=== PATIENT | female | born 1975 | race Caucasian/White ===

== ENCOUNTER 2018-01-12 11:33 | Inpatient (IN) | payer BC ==
[~2018-01-12] VITALS: Ht 154.9 cm; Wt 63.0 kg
[2018-01-12 06:00] VITALS: BP 131/90
[~2018-01-12 11:33] MED LIST: ALPR0.254 PO; ARIP10TA9 PO; IBUP-1007 PO; LISI10TA2 PO; METF10007 PO; TRAM-48 PO; ZOLP10TA PO; [UNRECOGNIZED DRUG - OTHER] SQ
[2018-01-12] MEDS ORDERED: IV NORMAL SALINE 1000ML BAG 1,000 ML IV ONE ×2 (12:15→17:00)
[2018-01-12] MEDS ORDERED: fentaNYL PF VIAL 100 MCG/2 ML VIAL IV ONE ×3 (12:15→16:45)
[2018-01-12] MEDS ORDERED: ONDANSETRON PF 4 MG/2 ML VIAL. IV ONE (12:15)
[2018-01-12 12:17] LABS: BASO % 1 % (0-3); EOS # 0.1 x10^3/uL (0.0-0.7); EOS % 1 % (0-3); HEMATOCRIT 37.9 % (36.0-47.0); HEMOGLOBIN 12.5 g/dL (12.0-15.5); LYMPH # 1.9 x10^3/uL (1.0-4.8); LYMPH % 23 % (24-48); MEAN CORPUSCULAR HEMOGLOBIN 25 pg (25-35); MEAN CORPUSCULAR HGB CONC 33 g/dL (31-37); MEAN CORPUSCULAR VOLUME 76 fL (79-100); MONO # 0.7 x10^3/uL (0.0-1.1); MONO % 8 % (0-9); NEUT # 5.6 x10^3uL (1.8-7.7); NEUT % 67 % (31-73); PLATELET COUNT 233 x10^3/uL (140-400); RED BLOOD COUNT 4.99 x10^6/uL (3.50-5.40); RED CELL DISTRIBUTION WIDTH 15.6 % (11.5-14.5); WHITE BLOOD COUNT 8.3 x10^3/uL (4.0-11.0)
[2018-01-12 12:18] LABS: BILIRUBIN,URINE NEGATIVE (NEG); CLARITY,URINE CLEAR; COLOR,URINE YELLOW; NITRITE,URINE NEGATIVE (NEG); PROTEIN,URINE NEGATIVE (NEG-TRACE); UROBILINOGEN,URINE 0.2 mg/dL (0.2 mg/dL)
[2018-01-12 12:38] LABS: BACTERIA,URINE MODERATE /HPF (0-FEW); RBC,URINE 0 /HPF (0-2); SQUAMOUS EPITHELIAL CELL,UR MOD /LPF
[2018-01-12 12:39] LABS: U PREG PATIENT NEGATIVE (NEG)
[2018-01-12 12:55] LABS: CALCIUM 8.9 mg/dL (8.5-10.1); CREATININE 0.7 mg/dL (0.6-1.0); GFR 91.3; POTASSIUM 4.8 mmol/L (3.5-5.1)
[2018-01-12 13:02] LABS: ALBUMIN 3.4 g/dL (3.4-5.0); ALBUMIN/GLOBULIN RATIO 0.8 (1.0-1.7); TOTAL BILIRUBIN 0.2 mg/dL (0.2-1.0); TOTAL PROTEIN 7.6 g/dL (6.4-8.2)
[2018-01-12] MEDS ORDERED: IOHEXOL 300 MG/ML 100ML VIAL. IV ONE (13:30)
[2018-01-12] MEDS ORDERED: CONTRAST GIVEN. MC PRN (13:45)
--- NOTE | 2018-01-12 14:18 | RAD ---
Examination: CT of the abdomen pelvis with IV contrast HISTORY: History of right-sided abdominal pain COMPARISON: None available TECHNIQUE: Axial CT images of the abdomen pelvis were performed with IV contrast. Coronal and sagittal reformats are performed. Exposure: One or more of the following individualized dose reduction techniques were utilized for this examination: 1. Automated exposure control 2. Adjustment of the mA and/or kV according to patient size 3. Use of iterative reconstruction technique FINDINGS: Small calcified granuloma identified in the right lung base. The lung bases are clear. No evidence of free air identified in the abdomen. There is ill-defined hypodensity measuring 8.0 x 4.7 cm could be hepatic abscess or infarct with surrounding hypodensity likely edema identified in the right lobe of the liver extending from the gallbladder fossa with punctate focus of air in the gallbladder fossa. Multiple calcified granulomas identified in the spleen. Cholecystectomy changes. The stomach is mildly distended. The small bowel is nondilated. Feces and gas noted in the colon throughout. Cystic structure identified in the right adnexa measuring 3.2 cm could be right ovarian cyst or cystic lesion. There is some whorled appearance of the mesentery at the mesenteric root with multiple lymph nodes with the largest measuring 1.4 cm. The visualized pancreas grossly appears unremarkable. The bilateral kidneys enhance symmetrically. No evidence of lytic bony destructive lesion. Impression: 1. 8 cm ill-defined hypodensity identified in the right lobe of the liver surrounding edema could be developing abscess or infarct. Correlate with lab values. 2. There is some whirling of the mesentery at the mesenteric root with few prominent mesenteric lymph nodes. Differential includes mesenteric adenitis, lymphoma or internal hernia without small bowel obstruction. 3. 3.2 cm cystic structure identified in the right adnexa probably a right ovarian cyst or cystic lesion. Electronically signed by: Bernardo Merino MD (01/12/2018 2:14 PM) [facility]
--- NOTE | 2018-01-12 16:35 | PHYS DOC ---
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 Patient states the pain has been coming and going. She states the pain got worse hence the reason she came to the ED. She is also complaining of nausea and vomiting intermittently since her gallbladder was removed. Patient denies any fever. PCP Dr. Nuno Review of Systems Review of Systems Constitutional: Denies fever or chills [] Eyes: Denies change in visual acuity, redness, or eye pain [] HENT: Denies nasal congestion or sore throat [] Respiratory: Denies cough or shortness of breath [] Cardiovascular: No additional information not addressed in HPI [] GI: Reports abdominal pain, nausea and vomiting, denies diarrhea [] : Denies dysuria or hematuria [] Musculoskeletal: Denies back pain or joint pain [] Integument: Denies rash or skin lesions [] Neurologic: Denies headache, focal weakness or sensory changes [] All other systems were reviewed and found to be within normal limits, except as documented in this note. Current Medications Current Medications Current Medications Medications (Trade) Dose Ordered Sig/Teto Start Time Stop Time Status Last Admin Dose Admin Fentanyl Citrate (Fentanyl 2ml Vial) 50 mcg 1X ONCE 01/12/18 16:45 01/12/18 16:46 Info (CONTRAST GIVEN -- Rx MONITORING) 1 each PRN DAILY PRN 01/12/18 13:45 01/14/18 13:44 Iohexol (Omnipaque 300 Mg/ml) 75 ml 1X ONCE 01/12/18 13:30 01/12/18 13:31 DC 01/12/18 13:30 75 ML Ondansetron HCl (Zofran) 4 mg 1X ONCE 01/12/18 12:15 01/12/18 12:16 DC 01/12/18 12:27 4 MG Sodium Chloride 1,000 ml @ 1,000 mls/hr 1X ONCE 01/12/18 12:15 01/12/18 13:14 DC 01/12/18 12:27 1,000 MLS/HR Allergies Allergies Allergies Coded Allergies Type Severity Reaction Last Updated Verified Penicillins Allergy Intermediate RASHY 10/25/17 Yes acetaminophen Adverse Reaction Intermediate severe stomach ache 10/25/17 Yes morphine Adverse Reaction Intermediate Itching 10/25/17 Yes Physical Exam Physical Exam Constitutional: Well developed, well nourished, no acute distress, non-toxic appearance. [] HENT: Normocephalic, atraumatic, bilateral external ears normal, oropharynx moist, no oral exudates, nose normal. [] Eyes: PERRLA, EOMI, conjunctiva normal, no discharge. [] Neck: Normal range of motion, no tenderness, supple, no stridor. [] Cardiovascular:Heart rate regular rhythm, no murmur [] Lungs & Thorax: Bilateral breath sounds clear to auscultation [] Abdomen: Old healed surgical incision noted right upper quadrant. Bowel sounds normal, soft, slight diffuse tenderness throughout the abdomen, no masses, no pulsatile masses. [] Skin: Warm, dry, no erythema, no rash. [] Back: No tenderness, no CVA tenderness. [] Extremities: No tenderness, no cyanosis, no clubbing, ROM intact, no edema. [] Neurologic: Alert and oriented X 3, normal motor function, normal sensory function, no focal deficits noted. [] Psychologic: Affect normal, judgement normal, mood normal. [] Current Patient Data Vital Signs Vital Signs Date Time Temp Pulse Resp B/P (MAP) Pulse Ox O2 Delivery O2 Flow Rate FiO2 01/12/18 14:11 16 01/12/18 11:50 98.4 108 140/94 (109) 97 Room Air 98.4 Lab Values Laboratory Tests Test 01/12/18 11:40 01/12/18 12:05 Urine Collection Type Unknown Urine Color Yellow Urine Clarity Clear Urine pH 5.0 Urine Specific [place] >=1.030 Urine Protein Negative mg/dL (NEG-TRACE) Urine Glucose (UA) >=1000 mg/dL (NEG) Urine Ketones (Stick) Negative mg/dL (NEG) Urine Blood Trace (NEG) Urine Nitrite Negative (NEG) Urine Bilirubin Negative (NEG) Urine Urobilinogen Dipstick 0.2 mg/dL (0.2 mg/dL) Urine Leukocyte Esterase Negative (NEG) Urine RBC 0 /HPF (0-2) Urine WBC 1-4 /HPF (0-4) Urine Squamous Epithelial Cells Mod /LPF Urine Bacteria Moderate /HPF (0-FEW) Urine Mucus Mod /LPF Urine Test Negative (NEG) White Blood Count 8.3 x10^3/uL (4.0-11.0) Red Blood Count 4.99 x10^6/uL (3.50-5.40) Hemoglobin 12.5 g/dL (12.0-15.5) Hematocrit 37.9 % (36.0-47.0) Mean Corpuscular Volume 76 fL (79-100) L Mean Corpuscular Hemoglobin 25 pg (25-35) Mean Corpuscular Hemoglobin Concent 33 g/dL (31-37) Red Cell Distribution Width 15.6 % (11.5-14.5) H Platelet Count 233 x10^3/uL (140-400) Neutrophils (%) (Auto) 67 % (31-73) Lymphocytes (%) (Auto) 23 % (24-48) L Monocytes (%) (Auto) 8 % (0-9) Eosinophils (%) (Auto) 1 % (0-3) Basophils (%) (Auto) 1 % (0-3) Neutrophils # (Auto) 5.6 x10^3uL (1.8-7.7) Lymphocytes # (Auto) 1.9 x10^3/uL (1.0-4.8) Monocytes # (Auto) 0.7 x10^3/uL (0.0-1.1) Eosinophils # (Auto) 0.1 x10^3/uL (0.0-0.7) Basophils # (Auto) 0.0 x10^3/uL (0.0-0.2) Sodium Level 133 mmol/L (136-145) L Potassium Level 4.8 mmol/L (3.5-5.1) Chloride Level 97 mmol/L (98-107) L Carbon Dioxide Level 24 mmol/L (21-32) Anion Gap 12 (6-14) Blood Urea Nitrogen 14 mg/dL (7-20) Creatinine 0.7 mg/dL (0.6-1.0) Estimated GFR (Cockcroft-Gault) 91.3 BUN/Creatinine Ratio 20 (6-20) Glucose Level 339 mg/dL (70-99) H Calcium Level 8.9 mg/dL (8.5-10.1) Total Bilirubin 0.2 mg/dL (0.2-1.0) Aspartate Amino Transferase (AST) 21 U/L (15-37) Alanine Aminotransferase (ALT) 25 U/L (14-59) Alkaline Phosphatase 122 U/L (46-116) H Total Protein 7.6 g/dL (6.4-8.2) Albumin 3.4 g/dL (3.4-5.0) Albumin/Globulin Ratio 0.8 (1.0-1.7) L Lipase 332 U/L (73-393) Laboratory Tests 01/12/18 12:05 Laboratory Tests 01/12/18 12:05 EKG EKG [] Radiology/Procedures Radiology/Procedures []PROCEDURE: CT ABD PELV W/ IV CONTRST ONLY Examination: CT of the abdomen pelvis with IV contrast HISTORY: History of right-sided abdominal pain COMPARISON: None available TECHNIQUE: Axial CT images of the abdomen pelvis were performed with IV contrast. Coronal and sagittal reformats are performed. Exposure: One or more of the following individualized dose reduction techniques were utilized for this examination: 1. Automated exposure control 2. Adjustment of the mA and/or kV according to patient size 3. Use of iterative reconstruction technique FINDINGS: Small calcified granuloma identified in the right lung base. The lung bases are clear. No evidence of free air identified in the abdomen. There is ill-defined hypodensity measuring 8.0 x 4.7 cm could be hepatic abscess or infarct with surrounding hypodensity likely edema identified in the right lobe of the liver extending from the gallbladder fossa with punctate focus of air in the gallbladder fossa. Multiple calcified granulomas identified in the spleen. Cholecystectomy changes. The stomach is mildly distended. The small bowel is nondilated. Feces and gas noted in the colon throughout. Cystic structure identified in the right adnexa measuring 3.2 cm could be right ovarian cyst or cystic lesion. There is some whorled appearance of the mesentery at the mesenteric root with multiple lymph nodes with the largest measuring 1.4 cm. The visualized pancreas grossly appears unremarkable. The bilateral kidneys enhance symmetrically. No evidence of lytic bony destructive lesion. Impression: 1. 8 cm ill-defined hypodensity identified in the right lobe of the liver surrounding edema could be developing abscess or infarct. Correlate with lab values. 2. There is some whirling of the mesentery at the mesenteric root with few prominent mesenteric lymph nodes. Differential includes mesenteric adenitis, lymphoma or internal hernia without small bowel obstruction. 3. 3.2 cm cystic structure identified in the right adnexa probably a right ovarian cyst or cystic lesion. Electronically signed by: Bernardo Merino MD (01/12/2018 2:14 PM) [facility] DICTATED and SIGNED BY: BERNARDO MERINO MD DATE: 01/12/18 1404 Course & Med Decision Making Course & Med Decision Making Pertinent Labs and Imaging studies reviewed. (See chart for details) This is a 42-year-old female patient who presents to the ED today complaining of abdominal pain that has been going on since Sep 13 2017 after having an open cholecystectomy which resulted into multiple complications including liver in fact. CBC with a normal WBC, CMP with sodium of 133, glucose 339, patient has history of diabetes type 1, anion gap is normal. CT of the abdomen and pelvic was noted for 8 cm ill-defined hypodensity identified in the right lobe of the liver surrounding edema could be developing abscess or infarct. Correlate with lab values. 16:30 Dr. Morales in the ED evaluating patient. Dr. Morales spoke to Dr. Nuno patient's PCP and they agreed to admit patient. Dragon Disclaimer Dragon Disclaimer This electronic medical record was generated, in whole or in part, using a voice recognition dictation system. Departure Departure Impression: Primary Impression: Abdominal pain Additional Impression: Hyperglycemia Disposition: ADMITTED INPATIENT Condition: STABLE Referrals: CHASE NUNO MD (PCP) Problem Qualifiers Primary Impression: Abdominal pain Abdominal location: generalized Qualified Codes: R10.84 - Generalized abdominal pain ONEIDAALEX PADILLA [employer] Jan 12, 2018 16:35
[2018-01-12] MEDS ORDERED: fentaNYL PF VIAL 100 MCG/2 ML VIAL IV PRN (17:00)
[2018-01-12] MEDS ORDERED: DEXTROSE 50% 25 GM / 50ML DISP.SYRIN. IV PRN (17:00)
[2018-01-12] MEDS ORDERED: HYDROcodone/APAP 5/325MG 1 TAB TABLET PO PRN (18:45)
[2018-01-12 19:00] VITALS: BP 119/76
[2018-01-12] MEDS ORDERED: diphenhydrAMINE HCL 25 MG CAPSULE PO PRN (19:00)
[2018-01-12] MEDS: HYDROcodone/APAP 5/325MG 1 TAB TABLET PO PRN ×2 (19:19→20:56)
[2018-01-12] MEDS: INSULIN LISPRO 300 UNITS/3 ML INSULN.PEN. SQ SCH (19:21)
[2018-01-12] MEDS ORDERED: diphenhydrAMINE 50 MG/ML VIAL IVP PRN (19:45)
[2018-01-12] MEDS: diphenhydrAMINE HCL 25 MG CAPSULE PO PRN (20:56)
[2018-01-12] MEDS: ONDANSETRON PF 4 MG/2 ML VIAL. IV PRN (21:14)
[2018-01-12 23:00] VITALS: BP 125/85
[2018-01-13 03:00] VITALS: BP 97/67
[2018-01-13] MEDS: ONDANSETRON PF 4 MG/2 ML VIAL. IV PRN (05:13)
[2018-01-13 05:28] LABS: BASO % 1 % (0-3); EOS # 0.1 x10^3/uL (0.0-0.7); EOS % 2 % (0-3); HEMATOCRIT 34.1 % (36.0-47.0); HEMOGLOBIN 11.3 g/dL (12.0-15.5); LYMPH # 2.3 x10^3/uL (1.0-4.8); LYMPH % 41 % (24-48); MEAN CORPUSCULAR HEMOGLOBIN 25 pg (25-35); MEAN CORPUSCULAR HGB CONC 33 g/dL (31-37); MEAN CORPUSCULAR VOLUME 76 fL (79-100); MONO # 0.6 x10^3/uL (0.0-1.1); MONO % 10 % (0-9); NEUT # 2.7 x10^3uL (1.8-7.7); NEUT % 47 % (31-73); PLATELET COUNT 178 x10^3/uL (140-400); RED BLOOD COUNT 4.48 x10^6/uL (3.50-5.40); RED CELL DISTRIBUTION WIDTH 15.7 % (11.5-14.5); WHITE BLOOD COUNT 5.7 x10^3/uL (4.0-11.0)
[2018-01-13 05:55] LABS: ALBUMIN 2.8 g/dL (3.4-5.0); ALBUMIN/GLOBULIN RATIO 0.8 (1.0-1.7); CREATININE 0.4 mg/dL (0.6-1.0); GFR 174.2; POTASSIUM 4.2 mmol/L (3.5-5.1); TOTAL BILIRUBIN 0.2 mg/dL (0.2-1.0); TOTAL PROTEIN 6.4 g/dL (6.4-8.2)
[2018-01-13 07:00] VITALS: BP 102/72
[2018-01-13] MEDS: INSULIN LISPRO 300 UNITS/3 ML INSULN.PEN. SQ SCH ×3 (08:00→17:00)
[2018-01-13] MEDS: PANTOPRAZOLE IV PUSH 40 MG VIAL. IVP SCH (08:33)
[2018-01-13] MEDS: HYDROcodone/APAP 5/325MG 1 TAB TABLET PO PRN ×3 (08:35→19:30)
--- NOTE | 2018-01-13 09:53 | PDOC ---
GENERAL General: see dictated H&P. VITAL SIGNS Vital Signs: Vital Signs Date Time Temp Pulse Resp B/P (MAP) Pulse Ox O2 Delivery O2 Flow Rate FiO2 01/13/18 08:35 94 Room Air 01/13/18 07:00 97.8 95 16 102/72 (82) 97.8 I & O I & O Intake and Output 01/13/18 07:00 Intake Total 100 ml Balance 100 ml Intake Oral 100 ml ALLERGIES Allergies: Allergies Coded Allergies Type Severity Reaction Last Updated Verified Penicillins Allergy Intermediate RASHY 10/25/17 Yes acetaminophen Adverse Reaction Intermediate severe stomach ache 10/25/17 Yes morphine Adverse Reaction Intermediate Itching 10/25/17 Yes MEDS Medications: Current Medications Medications (Trade) Dose Ordered Sig/Teto Start Time Stop Time Status Last Admin Dose Admin Acetaminophen/ Hydrocodone Bitart (Lortab 5/325) 2 tab PRN Q4HRS PRN 01/12/18 18:45 Dextrose (Dextrose 50%-Water Syringe) 12.5 gm PRN Q15MIN PRN 01/12/18 17:00 Diphenhydramine HCl (Benadryl) 25 mg PRN Q6HRS PRN 01/12/18 19:45 Fentanyl Citrate (Fentanyl 2ml Vial) 50 mcg PRN Q2HR PRN 01/12/18 17:00 01/13/18 16:59 01/12/18 18:24 50 MCG Info (CONTRAST GIVEN -- Rx MONITORING) 1 each PRN DAILY PRN 01/12/18 13:45 01/14/18 13:44 Insulin Human Lispro (HumaLOG) 0-5 UNITS TIDWMEALS 01/12/18 17:00 01/12/18 19:21 2 UNITS Iohexol (Omnipaque 300 Mg/ml) 75 ml 1X ONCE 01/12/18 13:30 01/12/18 13:31 DC 01/12/18 13:30 75 ML Ondansetron HCl (Zofran) 4 mg PRN Q8HRS PRN 01/12/18 17:00 01/13/18 16:59 01/13/18 05:13 4 MG Pantoprazole Sodium (PROTONIX VIAL for IV PUSH) 40 mg DAILYAC 01/13/18 07:30 01/13/18 08:33 40 MG Sodium Chloride 1,000 ml @ 75 mls/hr 1X ONCE 01/12/18 17:00 01/13/18 06:19 DC 01/12/18 18:24 75 MLS/HR LAB Lab: Laboratory Tests Test 01/12/18 11:40 01/12/18 12:05 01/12/18 16:35 01/12/18 18:17 Urine Collection Type Unknown Urine Color Yellow Urine Clarity Clear Urine pH 5.0 Urine Specific [place] >=1.030 Urine Protein Negative mg/dL (NEG-TRACE) Urine Glucose (UA) >=1000 mg/dL (NEG) Urine Ketones (Stick) Negative mg/dL (NEG) Urine Blood Trace (NEG) Urine Nitrite Negative (NEG) Urine Bilirubin Negative (NEG) Urine Urobilinogen Dipstick 0.2 mg/dL (0.2 mg/dL) Urine Leukocyte Esterase Negative (NEG) Urine RBC 0 /HPF (0-2) Urine WBC 1-4 /HPF (0-4) Urine Squamous Epithelial Cells Mod /LPF Urine Bacteria Moderate /HPF (0-FEW) Urine Mucus Mod /LPF Urine Test Negative (NEG) White Blood Count 8.3 x10^3/uL (4.0-11.0) Red Blood Count 4.99 x10^6/uL (3.50-5.40) Hemoglobin 12.5 g/dL (12.0-15.5) Hematocrit 37.9 % (36.0-47.0) Mean Corpuscular Volume 76 fL (79-100) Mean Corpuscular Hemoglobin 25 pg (25-35) Mean Corpuscular Hemoglobin Concent 33 g/dL (31-37) Red Cell Distribution Width 15.6 % (11.5-14.5) Platelet Count 233 x10^3/uL (140-400) Neutrophils (%) (Auto) 67 % (31-73) Lymphocytes (%) (Auto) 23 % (24-48) Monocytes (%) (Auto) 8 % (0-9) Eosinophils (%) (Auto) 1 % (0-3) Basophils (%) (Auto) 1 % (0-3) Neutrophils # (Auto) 5.6 x10^3uL (1.8-7.7) Lymphocytes # (Auto) 1.9 x10^3/uL (1.0-4.8) Monocytes # (Auto) 0.7 x10^3/uL (0.0-1.1) Eosinophils # (Auto) 0.1 x10^3/uL (0.0-0.7) Basophils # (Auto) 0.0 x10^3/uL (0.0-0.2) Sodium Level 133 mmol/L (136-145) Potassium Level 4.8 mmol/L (3.5-5.1) Chloride Level 97 mmol/L (98-107) Carbon Dioxide Level 24 mmol/L (21-32) Anion Gap 12 (6-14) Blood Urea Nitrogen 14 mg/dL (7-20) Creatinine 0.7 mg/dL (0.6-1.0) Estimated GFR (Cockcroft-Gault) 91.3 BUN/Creatinine Ratio 20 (6-20) Glucose Level 339 mg/dL (70-99) Calcium Level 8.9 mg/dL (8.5-10.1) Total Bilirubin 0.2 mg/dL (0.2-1.0) Aspartate Amino Transf (AST/SGOT) 21 U/L (15-37) Alanine Aminotransferase (ALT/SGPT) 25 U/L (14-59) Alkaline Phosphatase 122 U/L (46-116) Total Protein 7.6 g/dL (6.4-8.2) Albumin 3.4 g/dL (3.4-5.0) Albumin/Globulin Ratio 0.8 (1.0-1.7) Lipase 332 U/L (73-393) Lactic Acid Level 1.8 mmol/L (0.4-2.0) Glucose (Fingerstick) 195 mg/dL (70-99) Test 01/12/18 20:38 01/13/18 04:40 01/13/18 08:07 Glucose (Fingerstick) 232 mg/dL (70-99) 146 mg/dL (70-99) White Blood Count 5.7 x10^3/uL (4.0-11.0) Red Blood Count 4.48 x10^6/uL (3.50-5.40) Hemoglobin 11.3 g/dL (12.0-15.5) Hematocrit 34.1 % (36.0-47.0) Mean Corpuscular Volume 76 fL (79-100) Mean Corpuscular Hemoglobin 25 pg (25-35) Mean Corpuscular Hemoglobin Concent 33 g/dL (31-37) Red Cell Distribution Width 15.7 % (11.5-14.5) Platelet Count 178 x10^3/uL (140-400) Neutrophils (%) (Auto) 47 % (31-73) Lymphocytes (%) (Auto) 41 % (24-48) Monocytes (%) (Auto) 10 % (0-9) Eosinophils (%) (Auto) 2 % (0-3) Basophils (%) (Auto) 1 % (0-3) Neutrophils # (Auto) 2.7 x10^3uL (1.8-7.7) Lymphocytes # (Auto) 2.3 x10^3/uL (1.0-4.8) Monocytes # (Auto) 0.6 x10^3/uL (0.0-1.1) Eosinophils # (Auto) 0.1 x10^3/uL (0.0-0.7) Basophils # (Auto) 0.0 x10^3/uL (0.0-0.2) Sodium Level 138 mmol/L (136-145) Potassium Level 4.2 mmol/L (3.5-5.1) Chloride Level 103 mmol/L (98-107) Carbon Dioxide Level 27 mmol/L (21-32) Anion Gap 8 (6-14) Blood Urea Nitrogen 9 mg/dL (7-20) Creatinine 0.4 mg/dL (0.6-1.0) Estimated GFR (Cockcroft-Gault) 174.2 BUN/Creatinine Ratio 23 (6-20) Glucose Level 131 mg/dL (70-99) Calcium Level 9.0 mg/dL (8.5-10.1) Total Bilirubin 0.2 mg/dL (0.2-1.0) Aspartate Amino Transf (AST/SGOT) 11 U/L (15-37) Alanine Aminotransferase (ALT/SGPT) 18 U/L (14-59) Alkaline Phosphatase 83 U/L (46-116) Total Protein 6.4 g/dL (6.4-8.2) Albumin 2.8 g/dL (3.4-5.0) Albumin/Globulin Ratio 0.8 (1.0-1.7) CHASE LEVINE MD Jan 13, 2018 09:53
[2018-01-13 11:00] VITALS: BP 117/82
--- NOTE | 2018-01-13 11:38 | PDOC2 ---
SHIELA SULLIVAN LATHE SETUP OPERATOR 01/13/18 1138: CONSULT Date of Consult Date of Consult DATE: 01/13/18 TIME: 11:32 Reason for Consult Reason for Consult: abdominal pain Referring Physician Referring Physician: ER Identification/Chief Complaint Chief Complaint abdominal pain Source Source: Chart review, Patient History of Present Illness Reason for Visit: Hx of Laparoscopic converted to open cholecystectomy with cholangiogram, hepaticojejunostomy in September. hepatic infarct postoperatively. Returns now with increasing RUQ and nausea, emesis. Currently improved, no further n/v Denies diarrhea or constipation Past Medical History Cardiovascular: HTN, Hyperlipidemia Pulmonary: Asthma Psych: Anxiety, Depression Endocrine: Diabetes Past Surgical History Past Surgical History: Cholecystectomy Family History Family History: Other Social History ALCOHOL: none Drugs: Other Lives: with Family Current Problem List Problem List Problems Medical Problems: (1) Abdominal pain Status: Acute (2) Hyperglycemia Status: Acute Current Medications Current Medications Current Medications Sodium Chloride 1,000 ml @ 1,000 mls/hr 1X ONCE IV Last administered on at 12:27; Start 01/12/18 at 12:15; Stop 01/12/18 at 13:14; Status DC Ondansetron HCl (Zofran) 4 mg 1X ONCE IV Last administered on 01/12/18at 12:27 ; Start 01/12/18 at 12:15; Stop 01/12/18 at 12:16; Status DC Fentanyl Citrate (Fentanyl 2ml Vial) 50 mcg 1X ONCE IV Last administered on at 12:27; Start 01/12/18 at 12:15; Stop 01/12/18 at 12:16; Status DC Iohexol (Omnipaque 300 Mg/ml) 75 ml 1X ONCE IV Last administered on 01/12/18at 13:30; Start 01/12/18 at 13:30; Stop 01/12/18 at 13:31; Status DC Info (CONTRAST GIVEN -- Rx MONITORING) 1 each PRN DAILY PRN MC SEE COMMENTS; Start 01/12/18 at 13:45; Stop 01/14/18 at 13:44 Fentanyl Citrate (Fentanyl 2ml Vial) 50 mcg 1X ONCE IV Last administered on at 14:11; Start 01/12/18 at 14:00; Stop 01/12/18 at 14:01; Status DC Fentanyl Citrate (Fentanyl 2ml Vial) 50 mcg 1X ONCE IV Last administered on 16:54; Start 01/12/18 at 16:45; Stop 01/12/18 at 16:46; Status DC Ondansetron HCl (Zofran) 4 mg PRN Q8HRS PRN IV NAUSEA/VOMITING Last administered on 01/13/18at 05:13; Start 01/12/18 at 17:00; Stop 01/13/18 at 16:59 Fentanyl Citrate (Fentanyl 2ml Vial) 50 mcg PRN Q2HR PRN IV PAIN Last administered on 01/12/18at 18:24; Start 01/12/18 at 17:00; Stop 01/13/18 at 16:59 Insulin Human Lispro (HumaLOG) 0-5 UNITS TIDWMEALS SQ Last administered on 01/12 19:21; Start 01/12/18 at 17:00 Dextrose (Dextrose 50%-Water Syringe) 12.5 gm PRN Q15MIN PRN IV SEE COMMENTS; Start 01/12/18 at 17:00 Sodium Chloride 1,000 ml @ 75 mls/hr 1X ONCE IV Last administered on at 18:24; Start 01/12/18 at 17:00; Stop 01/13/18 at 06:19; Status DC Pantoprazole Sodium (PROTONIX VIAL for IV PUSH) 40 mg DAILYAC IVP Last administered on 01/13/18at 08:33; Start 01/13/18 at 07:30 Acetaminophen/ Hydrocodone Bitart (Lortab 5/325) 1 tab PRN Q4HRS PRN PO MODERATE PAIN Last administered on 01/13/18at 08:35; Start 01/12/18 at 18:45 Acetaminophen/ Hydrocodone Bitart (Lortab 5/325) 2 tab PRN Q4HRS PRN PO SEVERE PAIN; Start 01/12/18 at 18:45 Diphenhydramine HCl (Benadryl) 12 mg PRN Q6HRS PRN PO ITCHING; Start 01/12/18 at 19:00; Stop 01/12/18 at 19:44; Status DC Diphenhydramine HCl (Benadryl) 25 mg PRN Q6HRS PRN PO ITCHING Last administered on 01/12/18at 20:56; Start 01/12/18 at 19:45 Diphenhydramine HCl (Benadryl) 25 mg PRN Q6HRS PRN IVP ITCHING; Start 01/12/18 at 19:45 Active Scripts Active Ultram (Tramadol Hcl) 50 Mg Tablet 50 Mg PO Q6H PRN Ibuprofen 600 Mg Tablet 600 Mg PO PRN Q6HRS PRN Reported Ambien (Zolpidem Tartrate) 10 Mg Tablet 10 Mg PO HS PRN [inslin] 14 Units SQ DAILY Metformin Hcl 1,000 Mg Tablet 1,000 Mg PO DAILYWBKFT Lisinopril 10 Mg Tablet 1 Tab PO DAILY Allergies Allergies: Coded Allergies: Penicillins (Verified Allergy, Intermediate, RASHY, 10/25/17) acetaminophen (Verified Adverse Reaction, Intermediate, severe stomach ache, 10/25/17) morphine (Verified Adverse Reaction, Intermediate, Itching, 10/25/17) ROS General: No: Chills, Other (fevers) PSYCHOLOGICAL ROS: No: Anxiety, Depression Eyes: No Blurry vision, No Double vision HEENT: No: Heacaches, Sore Throat Hematological and Lymphatic: No: Bleeding Problems, Blood Clots Respiratory: No: Cough, Shortness of breath Cardiovascular: No Chest Pain, No Palpitations Gastrointestinal: Yes Other (see hpi) Genitourinary: No Dysuria, No Hematuria Musculoskeletal: No Joint Pain, No Muscle Pain Neurological: No Confusion, No Impaired Coord/balance Skin: No Pruritus, No Rash Physical Exam General: Alert, Oriented X3, Cooperative, No acute distress HEENT: PERRLA, Mucous membr. moist/pink Lungs: Clear to auscultation, Normal air movement Heart: Regular rate, Normal S1, Normal S2, No murmurs Abdomen: Soft, No tenderness, No hepatosplenomegaly Extremities: No clubbing, No cyanosis Skin: No rashes, No breakdown Neuro: Normal gait, Normal speech Psych/Mental Status: Mental status NL, Mood NL MUSCULOSKELETAL: No deformity, No swelling Vitals VITALS Vital Signs Date Time Temp Pulse Resp B/P (MAP) Pulse Ox O2 Delivery O2 Flow Rate FiO2 01/13/18 09:45 94 Room Air 01/13/18 07:00 97.8 95 16 102/72 (82) 97.8 Labs Labs Laboratory Tests Test 01/12/18 11:40 01/12/18 12:05 01/12/18 16:35 01/12/18 18:17 Urine Collection Type Unknown Urine Color Yellow Urine Clarity Clear Urine pH 5.0 Urine Specific [place] >=1.030 Urine Protein Negative mg/dL (NEG-TRACE) Urine Glucose (UA) >=1000 mg/dL (NEG) Urine Ketones (Stick) Negative mg/dL (NEG) Urine Blood Trace (NEG) Urine Nitrite Negative (NEG) Urine Bilirubin Negative (NEG) Urine Urobilinogen Dipstick 0.2 mg/dL (0.2 mg/dL) Urine Leukocyte Esterase Negative (NEG) Urine RBC 0 /HPF (0-2) Urine WBC 1-4 /HPF (0-4) Urine Squamous Epithelial Cells Mod /LPF Urine Bacteria Moderate /HPF (0-FEW) Urine Mucus Mod /LPF Urine Test Negative (NEG) White Blood Count 8.3 x10^3/uL (4.0-11.0) Red Blood Count 4.99 x10^6/uL (3.50-5.40) Hemoglobin 12.5 g/dL (12.0-15.5) Hematocrit 37.9 % (36.0-47.0) Mean Corpuscular Volume 76 fL (79-100) Mean Corpuscular Hemoglobin 25 pg (25-35) Mean Corpuscular Hemoglobin Concent 33 g/dL (31-37) Red Cell Distribution Width 15.6 % (11.5-14.5) Platelet Count 233 x10^3/uL (140-400) Neutrophils (%) (Auto) 67 % (31-73) Lymphocytes (%) (Auto) 23 % (24-48) Monocytes (%) (Auto) 8 % (0-9) Eosinophils (%) (Auto) 1 % (0-3) Basophils (%) (Auto) 1 % (0-3) Neutrophils # (Auto) 5.6 x10^3uL (1.8-7.7) Lymphocytes # (Auto) 1.9 x10^3/uL (1.0-4.8) Monocytes # (Auto) 0.7 x10^3/uL (0.0-1.1) Eosinophils # (Auto) 0.1 x10^3/uL (0.0-0.7) Basophils # (Auto) 0.0 x10^3/uL (0.0-0.2) Sodium Level 133 mmol/L (136-145) Potassium Level 4.8 mmol/L (3.5-5.1) Chloride Level 97 mmol/L (98-107) Carbon Dioxide Level 24 mmol/L (21-32) Anion Gap 12 (6-14) Blood Urea Nitrogen 14 mg/dL (7-20) Creatinine 0.7 mg/dL (0.6-1.0) Estimated GFR (Cockcroft-Gault) 91.3 BUN/Creatinine Ratio 20 (6-20) Glucose Level 339 mg/dL (70-99) Calcium Level 8.9 mg/dL (8.5-10.1) Total Bilirubin 0.2 mg/dL (0.2-1.0) Aspartate Amino Transf (AST/SGOT) 21 U/L (15-37) Alanine Aminotransferase (ALT/SGPT) 25 U/L (14-59) Alkaline Phosphatase 122 U/L (46-116) Total Protein 7.6 g/dL (6.4-8.2) Albumin 3.4 g/dL (3.4-5.0) Albumin/Globulin Ratio 0.8 (1.0-1.7) Lipase 332 U/L (73-393) Lactic Acid Level 1.8 mmol/L (0.4-2.0) Glucose (Fingerstick) 195 mg/dL (70-99) Test 01/12/18 20:38 01/13/18 04:40 01/13/18 08:07 Glucose (Fingerstick) 232 mg/dL (70-99) 146 mg/dL (70-99) White Blood Count 5.7 x10^3/uL (4.0-11.0) Red Blood Count 4.48 x10^6/uL (3.50-5.40) Hemoglobin 11.3 g/dL (12.0-15.5) Hematocrit 34.1 % (36.0-47.0) Mean Corpuscular Volume 76 fL (79-100) Mean Corpuscular Hemoglobin 25 pg (25-35) Mean Corpuscular Hemoglobin Concent 33 g/dL (31-37) Red Cell Distribution Width 15.7 % (11.5-14.5) Platelet Count 178 x10^3/uL (140-400) Neutrophils (%) (Auto) 47 % (31-73) Lymphocytes (%) (Auto) 41 % (24-48) Monocytes (%) (Auto) 10 % (0-9) Eosinophils (%) (Auto) 2 % (0-3) Basophils (%) (Auto) 1 % (0-3) Neutrophils # (Auto) 2.7 x10^3uL (1.8-7.7) Lymphocytes # (Auto) 2.3 x10^3/uL (1.0-4.8) Monocytes # (Auto) 0.6 x10^3/uL (0.0-1.1) Eosinophils # (Auto) 0.1 x10^3/uL (0.0-0.7) Basophils # (Auto) 0.0 x10^3/uL (0.0-0.2) Sodium Level 138 mmol/L (136-145) Potassium Level 4.2 mmol/L (3.5-5.1) Chloride Level 103 mmol/L (98-107) Carbon Dioxide Level 27 mmol/L (21-32) Anion Gap 8 (6-14) Blood Urea Nitrogen 9 mg/dL (7-20) Creatinine 0.4 mg/dL (0.6-1.0) Estimated GFR (Cockcroft-Gault) 174.2 BUN/Creatinine Ratio 23 (6-20) Glucose Level 131 mg/dL (70-99) Calcium Level 9.0 mg/dL (8.5-10.1) Total Bilirubin 0.2 mg/dL (0.2-1.0) Aspartate Amino Transf (AST/SGOT) 11 U/L (15-37) Alanine Aminotransferase (ALT/SGPT) 18 U/L (14-59) Alkaline Phosphatase 83 U/L (46-116) Total Protein 6.4 g/dL (6.4-8.2) Albumin 2.8 g/dL (3.4-5.0) Albumin/Globulin Ratio 0.8 (1.0-1.7) Laboratory Tests Test 01/12/18 11:40 01/12/18 12:05 01/12/18 16:35 01/12/18 18:17 Urine Collection Type Unknown Urine Color Yellow Urine Clarity Clear Urine pH 5.0 Urine Specific [place] >=1.030 Urine Protein Negative mg/dL (NEG-TRACE) Urine Glucose (UA) >=1000 mg/dL (NEG) Urine Ketones (Stick) Negative mg/dL (NEG) Urine Blood Trace (NEG) Urine Nitrite Negative (NEG) Urine Bilirubin Negative (NEG) Urine Urobilinogen Dipstick 0.2 mg/dL (0.2 mg/dL) Urine Leukocyte Esterase Negative (NEG) Urine RBC 0 /HPF (0-2) Urine WBC 1-4 /HPF (0-4) Urine Squamous Epithelial Cells Mod /LPF Urine Bacteria Moderate /HPF (0-FEW) Urine Mucus Mod /LPF Urine Test Negative (NEG) White Blood Count 8.3 x10^3/uL (4.0-11.0) Red Blood Count 4.99 x10^6/uL (3.50-5.40) Hemoglobin 12.5 g/dL (12.0-15.5) Hematocrit 37.9 % (36.0-47.0) Mean Corpuscular Volume 76 fL (79-100) Mean Corpuscular Hemoglobin 25 pg (25-35) Mean Corpuscular Hemoglobin Concent 33 g/dL (31-37) Red Cell Distribution Width 15.6 % (11.5-14.5) Platelet Count 233 x10^3/uL (140-400) Neutrophils (%) (Auto) 67 % (31-73) Lymphocytes (%) (Auto) 23 % (24-48) Monocytes (%) (Auto) 8 % (0-9) Eosinophils (%) (Auto) 1 % (0-3) Basophils (%) (Auto) 1 % (0-3) Neutrophils # (Auto) 5.6 x10^3uL (1.8-7.7) Lymphocytes # (Auto) 1.9 x10^3/uL (1.0-4.8) Monocytes # (Auto) 0.7 x10^3/uL (0.0-1.1) Eosinophils # (Auto) 0.1 x10^3/uL (0.0-0.7) Basophils # (Auto) 0.0 x10^3/uL (0.0-0.2) Sodium Level 133 mmol/L (136-145) Potassium Level 4.8 mmol/L (3.5-5.1) Chloride Level 97 mmol/L (98-107) Carbon Dioxide Level 24 mmol/L (21-32) Anion Gap 12 (6-14) Blood Urea Nitrogen 14 mg/dL (7-20) Creatinine 0.7 mg/dL (0.6-1.0) Estimated GFR (Cockcroft-Gault) 91.3 BUN/Creatinine Ratio 20 (6-20) Glucose Level 339 mg/dL (70-99) Calcium Level 8.9 mg/dL (8.5-10.1) Total Bilirubin 0.2 mg/dL (0.2-1.0) Aspartate Amino Transf (AST/SGOT) 21 U/L (15-37) Alanine Aminotransferase (ALT/SGPT) 25 U/L (14-59) Alkaline Phosphatase 122 U/L (46-116) Total Protein 7.6 g/dL (6.4-8.2) Albumin 3.4 g/dL (3.4-5.0) Albumin/Globulin Ratio 0.8 (1.0-1.7) Lipase 332 U/L (73-393) Lactic Acid Level 1.8 mmol/L (0.4-2.0) Glucose (Fingerstick) 195 mg/dL (70-99) Test 01/12/18 20:38 01/13/18 04:40 01/13/18 08:07 Glucose (Fingerstick) 232 mg/dL (70-99) 146 mg/dL (70-99) White Blood Count 5.7 x10^3/uL (4.0-11.0) Red Blood Count 4.48 x10^6/uL (3.50-5.40) Hemoglobin 11.3 g/dL (12.0-15.5) Hematocrit 34.1 % (36.0-47.0) Mean Corpuscular Volume 76 fL (79-100) Mean Corpuscular Hemoglobin 25 pg (25-35) Mean Corpuscular Hemoglobin Concent 33 g/dL (31-37) Red Cell Distribution Width 15.7 % (11.5-14.5) Platelet Count 178 x10^3/uL (140-400) Neutrophils (%) (Auto) 47 % (31-73) Lymphocytes (%) (Auto) 41 % (24-48) Monocytes (%) (Auto) 10 % (0-9) Eosinophils (%) (Auto) 2 % (0-3) Basophils (%) (Auto) 1 % (0-3) Neutrophils # (Auto) 2.7 x10^3uL (1.8-7.7) Lymphocytes # (Auto) 2.3 x10^3/uL (1.0-4.8) Monocytes # (Auto) 0.6 x10^3/uL (0.0-1.1) Eosinophils # (Auto) 0.1 x10^3/uL (0.0-0.7) Basophils # (Auto) 0.0 x10^3/uL (0.0-0.2) Sodium Level 138 mmol/L (136-145) Potassium Level 4.2 mmol/L (3.5-5.1) Chloride Level 103 mmol/L (98-107) Carbon Dioxide Level 27 mmol/L (21-32) Anion Gap 8 (6-14) Blood Urea Nitrogen 9 mg/dL (7-20) Creatinine 0.4 mg/dL (0.6-1.0) Estimated GFR (Cockcroft-Gault) 174.2 BUN/Creatinine Ratio 23 (6-20) Glucose Level 131 mg/dL (70-99) Calcium Level 9.0 mg/dL (8.5-10.1) Total Bilirubin 0.2 mg/dL (0.2-1.0) Aspartate Amino Transf (AST/SGOT) 11 U/L (15-37) Alanine Aminotransferase (ALT/SGPT) 18 U/L (14-59) Alkaline Phosphatase 83 U/L (46-116) Total Protein 6.4 g/dL (6.4-8.2) Albumin 2.8 g/dL (3.4-5.0) Albumin/Globulin Ratio 0.8 (1.0-1.7) Assessment/Plan Assessment/Plan abd pain, acute on chronic wbc normal, CT noted will have Dr Andrew HUNTLEY today overall pain improved FRANKY JOSUE MD 01/13/184: CONSULT Assessment/Plan Assessment/Plan saw Leni in good spirits would like more to eat will advance to fulls for breakfast consider SBSANIYA SULLIVANSHIELA Juan LYLE Jan 13, 2018 11:38 FRANKY JOSUE MD Jan 13, 2018 19:34
--- NOTE | 2018-01-13 12:52 | HP ---
ADMIT DATE: LOCATION: Room 412. CHIEF COMPLAINT AND HISTORY OF PRESENT ILLNESS: This 42-year-old white female is well known to me from followup. She has longstanding type 1 diabetes, bipolar, depression. She had cholecystectomy back earlier this year with a right hepatic infarct as a complication. She has been having some ongoing abdominal discomfort on the right side ever since surgery, but on the morning of admission it was severe, which brought her to the Emergency Room. She describes it as burning. Denies any changes with her bowels or urination with this, has had a decent appetite, has had no fevers, chills, sweats, etc. Sugar was elevated at 339 on presentation to the Emergency Room. The patient was admitted for the abdominal pain with CT scanning showing an 8 cm fluid collection in the right lobe of the liver, felt to be possibly an abscess, although likely related to the prior surgery and will have to have this sorted out between Surgery and ID. PAST MEDICAL HISTORY: Remarkable for bipolar depression, type 1 diabetes, hypertension. PAST SURGICAL HISTORY: She has had a prior cyst removed from the spine as well as the cholecystectomy with the right liver infarct. MEDICATIONS: Brought with the patient, listed on the computer and have been addressed. ALLERGIES: SHE IS ALLERGIC TO PENICILLIN, ACETAMINOPHEN AND MORPHINE WELL FENTANYL FROM A MENTAL STATUS CHANGE. SOCIAL HISTORY: She is single, nonsmoker, nondrinker, does not use drugs. Lives at home with her parents. FAMILY HISTORY: Noncontributory. REVIEW OF SYSTEMS: As mentioned above. PHYSICAL EXAMINATION: GENERAL: She is well-developed, well-nourished white female, in no acute distress at rest. VITAL SIGNS: Stable. She is afebrile. HEAD, EYES, EARS, NOSE AND THROAT: Unremarkable. There is no jaundice. NECK: Supple, without lymphadenopathy or thyromegaly. CHEST: Clear to auscultation and percussion. HEART: Regular rate and rhythm without S3, S4 or murmur. ABDOMEN: Soft and essentially nontender, without hepatosplenomegaly or masses, rebound or guarding. EXTREMITIES: Without cyanosis, clubbing, edema. NEUROLOGIC: She is intact. DIAGNOSTIC DATA: Again, the CAT scan findings were discussed as above. Her laboratory including a CMP is essentially unremarkable, CBC is likewise unremarkable. Lipase was likewise normal. IMPRESSION: Abdominal pain with a complicated history as described above, predominantly on the right side with CT findings as noted above. PLAN: The patient has been admitted. She is on IV fluids. Surgery has made her n.p.o. Infectious Disease will be asked to see her because of the question of an abscess, which I doubt and feel this is old, probably postop in nature, although the increasing pain is concerning and needs to be worked up further. She will be on sliding scale insulin at this point in time for her diabetes management, which blood sugars this morning are much better. CHASE LEVINE MD DR: SUNG/magy JOB#: [id number] / [id number]
[2018-01-13 15:00] VITALS: BP 132/93
--- NOTE | 2018-01-13 15:33 | PDOC ---
Infectious Disease Note Vital Sign Vital Signs Vital Signs Date Time Temp Pulse Resp B/P (MAP) Pulse Ox O2 Delivery O2 Flow Rate FiO2 01/13/18 13:38 96 Room Air 01/13/18 11:00 97.9 91 16 117/82 (94) 97.9 Labs Lab Laboratory Tests Test 01/12/18 16:35 01/12/18 18:17 01/12/18 20:38 01/13/18 04:40 Lactic Acid Level 1.8 mmol/L (0.4-2.0) Glucose (Fingerstick) 195 mg/dL (70-99) 232 mg/dL (70-99) White Blood Count 5.7 x10^3/uL (4.0-11.0) Red Blood Count 4.48 x10^6/uL (3.50-5.40) Hemoglobin 11.3 g/dL (12.0-15.5) Hematocrit 34.1 % (36.0-47.0) Mean Corpuscular Volume 76 fL (79-100) Mean Corpuscular Hemoglobin 25 pg (25-35) Mean Corpuscular Hemoglobin Concent 33 g/dL (31-37) Red Cell Distribution Width 15.7 % (11.5-14.5) Platelet Count 178 x10^3/uL (140-400) Neutrophils (%) (Auto) 47 % (31-73) Lymphocytes (%) (Auto) 41 % (24-48) Monocytes (%) (Auto) 10 % (0-9) Eosinophils (%) (Auto) 2 % (0-3) Basophils (%) (Auto) 1 % (0-3) Neutrophils # (Auto) 2.7 x10^3uL (1.8-7.7) Lymphocytes # (Auto) 2.3 x10^3/uL (1.0-4.8) Monocytes # (Auto) 0.6 x10^3/uL (0.0-1.1) Eosinophils # (Auto) 0.1 x10^3/uL (0.0-0.7) Basophils # (Auto) 0.0 x10^3/uL (0.0-0.2) Sodium Level 138 mmol/L (136-145) Potassium Level 4.2 mmol/L (3.5-5.1) Chloride Level 103 mmol/L (98-107) Carbon Dioxide Level 27 mmol/L (21-32) Anion Gap 8 (6-14) Blood Urea Nitrogen 9 mg/dL (7-20) Creatinine 0.4 mg/dL (0.6-1.0) Estimated GFR (Cockcroft-Gault) 174.2 BUN/Creatinine Ratio 23 (6-20) Glucose Level 131 mg/dL (70-99) Calcium Level 9.0 mg/dL (8.5-10.1) Total Bilirubin 0.2 mg/dL (0.2-1.0) Aspartate Amino Transf (AST/SGOT) 11 U/L (15-37) Alanine Aminotransferase (ALT/SGPT) 18 U/L (14-59) Alkaline Phosphatase 83 U/L (46-116) Total Protein 6.4 g/dL (6.4-8.2) Albumin 2.8 g/dL (3.4-5.0) Albumin/Globulin Ratio 0.8 (1.0-1.7) Test 01/13/18 08:07 01/13/18 11:43 Glucose (Fingerstick) 146 mg/dL (70-99) 179 mg/dL (70-99) Objective Assessment RUQ pain with N/V which has improved since admission h/o hepatic infarct in September 2017. h/o lap converted open elida complicated by ductal/vessel injury and bile leak in September 2017 PCN allergy - itching. Doesn't recall whether amoxicillin caused any problems. DM HTN HLD Plan Plan of Care Recent CT shows ill-defined hypodensity in the right hepatic lobe measuring 8.0 x 4.7 cm decreased from 13.1 cm x 9.1 cm x 11.1 cm in September. She remains afebrile and WBC is normal Continue to observe off antibiotics. Await surgery f/u. Thank you Pt seen and examined. Chart reviewed in detail. Case discussed with [employer]. Agree with above plan KWABENA SILVA APRN Jan 13, 2018 15:33 GREG VELÁSQUEZ MD Jan 13, 2018 19:20
[2018-01-13 19:00] VITALS: BP 148/99
[2018-01-13] MEDS: diphenhydrAMINE HCL 25 MG CAPSULE PO PRN (19:30)
[2018-01-13 23:59] VITALS: BP 107/72
[2018-01-14 03:00] VITALS: BP 111/77
--- NOTE | 2018-01-14 06:30 | CONS ---
DATE OF CONSULTATION: 01/13/2018 CONSULTATION DICTATING PHYSICIAN: This is Ramsey Bocanegra, nurse practitioner dictating for Dr. Holli Velásquez, Infectious Disease. REFERRING PHYSICIAN: Alex Nuno M.D. REASON FOR CONSULTATION: Possible liver abscess on CT. HISTORY OF PRESENT ILLNESS: This patient is a 42-year-old female with a history of undergoing a laparoscopic converted to open cholecystectomy complicated by hepatic infarct, a ductal vessel injury and a bile leak in September of 2017. She eventually improved and she was weaned off her antibiotics. Since that time, though she states she has had some right upper quadrant discomfort and nausea and vomiting off and on. Yesterday, the symptoms worsened, prompting an ER visit. An abdominal/pelvis CT revealed an 8.0 x 4.7 cm ill-defined hypodensity in the right lobe of the liver with surrounding edema, possibly developing abscess or infarct. The patient denies fevers or chills. Her WBC count is within normal. Since admission, her symptoms have settled down and she is very hungry and is hoping to eat soon. PAST MEDICAL HISTORY: Hyperlipidemia, hypertension, asthma, gallstones, diabetes, anxiety and history of right portal vein thrombosis. PAST SURGICAL HISTORY: Laparoscopic converted to open cholecystectomy complicated by hepatic infarct, ductal/vessel injury status post hepaticojejunostomy and bile leak in September of 2017 and cyst removed from spine. FAMILY HISTORY: Noncontributory. SOCIAL HISTORY: The patient is employed at [employer]. She is a former smoker. ALLERGIES: PENICILLIN, causing itching. She does not recall whether or not the Augmentin prescribed to her in September caused any problems. MEDICATIONS: Benadryl, fentanyl, Lortab, insulin, Zofran and Protonix. REVIEW OF SYSTEMS: Per HPI, otherwise all other review of systems are negative. PHYSICAL EXAMINATION: GENERAL: The patient is propped up in bed, alert and smiling. VITAL SIGNS: Temperature is 97.9, blood pressure 117/82, heart rate 91, respiratory rate 16, pulse oximetry 96% on room air and BMI 26. HEENT: Pupils equally round and reactive. Oral cavity, pharynx pink and dry. NECK: Supple. LUNGS: Clear to auscultation. HEART: S1 and S2. ABDOMEN: Bowel sounds active. Soft. Mild RUQ tenderness, no rebound. EXTREMITIES: No gross edema or cyanosis. SKIN: Warm without rash. NEUROLOGICAL: Alert and oriented x 3. LABORATORY DATA: WBC 5.7; hemoglobin 11.3 and platelet count 178,000. Creatinine 0.4, BUN 9. Electrolytes are unremarkable. Glucose 131. Lactic acid 1.8, total bilirubin 0.2, AST 21, ALT 25, albumin 3.4 and lipase 332. Urinalysis unremarkable for infection. RADIOLOGICAL DATA: Abdominal/pelvis CT per HPI. IMPRESSION: 1. Right upper quadrant pain with nausea and vomiting, which has improved since admission. 2. History of hepatic infarct in September of 2017. 3. History of laparoscopic converted to open cholecystectomy complicated by ductal/vessel injury and bile leak in September of 2017. 4. Penicillin allergy causing itching. She does not recall whether Augmentin caused any problems. 5. Diabetes mellitus. 6. Hypertension. 7. Hyperlipidemia. PLAN: Recent CT shows ill-defined hypodensity in the right hepatic lobe measuring 8.0 x 4.7 cm decreased from 13.1 cm x 9.1 cm x 11.1 cm in September of 2017. She remains afebrile and WBC is normal. Continue to observe off antibiotics. Awaiting Surgery followup. Thank you, Dr. Nuno for asking us to participate in this patient's care. Should you have further questions or concerns, please call. GREG VELÁSQUEZ MD DR: DAWIT/magy JOB#: [id number] / [id number]
[2018-01-14 07:00] VITALS: BP 123/88
[2018-01-14] MEDS: PANTOPRAZOLE IV PUSH 40 MG VIAL. IVP SCH (07:15)
[2018-01-14] MEDS: INSULIN LISPRO 300 UNITS/3 ML INSULN.PEN. SQ SCH ×3 (08:00→17:41)
--- NOTE | 2018-01-14 09:54 | PDOC ---
Infectious Disease Note Subjective Subjective pt is feeling better ROS ROS no n/v/d/sob/abd pain Vital Sign Vital Signs Vital Signs Date Time Temp Pulse Resp B/P (MAP) Pulse Ox O2 Delivery O2 Flow Rate FiO2 01/14/18 08:00 Room Air 01/14/18 07:00 97.5 83 18 123/88 (100) 97 97.5 Physical Exam PHYSICAL EXAM GENERAL: The patient is propped up in bed, alert and smiling. VITAL SIGNS: stable HEENT: Pupils equally round and reactive. Oral cavity, pharynx pink and dry. NECK: Supple. LUNGS: Clear to auscultation. HEART: S1 and S2. ABDOMEN: Bowel sounds active. Soft. Mild RUQ tenderness, no rebound. EXTREMITIES: No gross edema or cyanosis. SKIN: Warm without rash. NEUROLOGICAL: Alert and oriented x 3. Labs Lab Laboratory Tests Test 01/13/18 11:43 01/13/18 17:02 01/13/18 20:55 01/14/18 03:05 Glucose (Fingerstick) 179 mg/dL (70-99) 100 mg/dL (70-99) 175 mg/dL (70-99) Procalcitonin < 0.10 ng/mL (0.00-0.10) Test 01/14/18 07:19 Glucose (Fingerstick) 162 mg/dL (70-99) Objective Assessment 1. Right upper quadrant pain with nausea and vomiting, which has improved since admission. 2. History of hepatic infarct in September of 2017. 3. History of laparoscopic converted to open cholecystectomy complicated by ductal/vessel injury and bile leak in September of 2017. 4. Penicillin allergy causing itching. She does not recall whether Augmentin caused any problems. 5. Diabetes mellitus. 6. Hypertension. 7. Hyperlipidemia. Plan Plan of Care Recent CT shows ill-defined hypodensity in the right hepatic lobe measuring 8.0 x 4.7 cm decreased from 13.1 cm x 9.1 cm x 11.1 cm in September. She remains afebrile and WBC is normal Continue to observe off antibiotics. will s/o , please call if questions YAO CALLOWAY MD Jan 14, 2018 09:54
[2018-01-14 11:00] VITALS: BP 143/101
[2018-01-14] MEDS: HYDROcodone/APAP 5/325MG 1 TAB TABLET PO PRN ×2 (12:52→22:11)
--- NOTE | 2018-01-14 13:09 | PDOC ---
SURGICAL PROGRESS NOTE Subjective a little "burning" after lunch, but "lot of milk products" no stool Vital Signs Vital Signs Date Time Temp Pulse Resp B/P (MAP) Pulse Ox O2 Delivery O2 Flow Rate FiO2 01/14/18 11:00 96.6 83 16 143/101 (115) 96 Room Air 96.6 I&O Intake and Output 01/14/18 07:00 Intake Total 210 ml Balance 210 ml Intake Oral 210 ml # Voids 2 PATIENT HAS A MAHER: No General: Alert, Oriented X3, No acute distress Labs Laboratory Tests Test 01/12/18 16:35 01/12/18 18:17 01/12/18 20:38 01/13/18 04:40 Lactic Acid Level 1.8 mmol/L (0.4-2.0) Glucose (Fingerstick) 195 mg/dL (70-99) 232 mg/dL (70-99) White Blood Count 5.7 x10^3/uL (4.0-11.0) Red Blood Count 4.48 x10^6/uL (3.50-5.40) Hemoglobin 11.3 g/dL (12.0-15.5) Hematocrit 34.1 % (36.0-47.0) Mean Corpuscular Volume 76 fL (79-100) Mean Corpuscular Hemoglobin 25 pg (25-35) Mean Corpuscular Hemoglobin Concent 33 g/dL (31-37) Red Cell Distribution Width 15.7 % (11.5-14.5) Platelet Count 178 x10^3/uL (140-400) Neutrophils (%) (Auto) 47 % (31-73) Lymphocytes (%) (Auto) 41 % (24-48) Monocytes (%) (Auto) 10 % (0-9) Eosinophils (%) (Auto) 2 % (0-3) Basophils (%) (Auto) 1 % (0-3) Neutrophils # (Auto) 2.7 x10^3uL (1.8-7.7) Lymphocytes # (Auto) 2.3 x10^3/uL (1.0-4.8) Monocytes # (Auto) 0.6 x10^3/uL (0.0-1.1) Eosinophils # (Auto) 0.1 x10^3/uL (0.0-0.7) Basophils # (Auto) 0.0 x10^3/uL (0.0-0.2) Sodium Level 138 mmol/L (136-145) Potassium Level 4.2 mmol/L (3.5-5.1) Chloride Level 103 mmol/L (98-107) Carbon Dioxide Level 27 mmol/L (21-32) Anion Gap 8 (6-14) Blood Urea Nitrogen 9 mg/dL (7-20) Creatinine 0.4 mg/dL (0.6-1.0) Estimated GFR (Cockcroft-Gault) 174.2 BUN/Creatinine Ratio 23 (6-20) Glucose Level 131 mg/dL (70-99) Calcium Level 9.0 mg/dL (8.5-10.1) Total Bilirubin 0.2 mg/dL (0.2-1.0) Aspartate Amino Transf (AST/SGOT) 11 U/L (15-37) Alanine Aminotransferase (ALT/SGPT) 18 U/L (14-59) Alkaline Phosphatase 83 U/L (46-116) Total Protein 6.4 g/dL (6.4-8.2) Albumin 2.8 g/dL (3.4-5.0) Albumin/Globulin Ratio 0.8 (1.0-1.7) Test 01/13/18 08:07 01/13/18 11:43 01/13/18 17:02 01/13/18 20:55 Glucose (Fingerstick) 146 mg/dL (70-99) 179 mg/dL (70-99) 100 mg/dL (70-99) 175 mg/dL (70-99) Test 01/14/18 03:05 01/14/18 07:19 01/14/18 10:50 Procalcitonin < 0.10 ng/mL (0.00-0.10) Glucose (Fingerstick) 162 mg/dL (70-99) 167 mg/dL (70-99) Laboratory Tests Test 01/13/18 17:02 01/13/18 20:55 01/14/18 03:05 01/14/18 07:19 Glucose (Fingerstick) 100 mg/dL (70-99) 175 mg/dL (70-99) 162 mg/dL (70-99) Procalcitonin < 0.10 ng/mL (0.00-0.10) Test 01/14/18 10:50 Glucose (Fingerstick) 167 mg/dL (70-99) Problem List Problems Medical Problems: (1) Abdominal pain Status: Acute (2) Hyperglycemia Status: Acute Assessment/Plan improved constipation advance to soft foods FRANKY Craig MD Jan 14, 2018 13:09
[2018-01-14] MEDS ORDERED: MINERAL OIL 133 ML ENEMA. PR ONE (13:30)
[2018-01-14 15:00] VITALS: BP 138/93
--- NOTE | 2018-01-14 17:11 | PN ---
DATE: 01/14/2018 LOCATION: She is in room 412. SUBJECTIVE: The patient is awake, alert, had a full liquid last evening without any untoward effects. Today, she does state that the pain would get worse with eating prior to admission and still describes as a burning and I wonder if this is acid related in some way and she is on Protonix since admission. OBJECTIVE: VITAL SIGNS: Stable. She is afebrile. GENERAL: She is awake and alert. CHEST: Clear. HEART: Regular. ABDOMEN: Benign. EXTREMITIES: Without cyanosis, clubbing, edema. Sugars have been good. ASSESSMENT: 1. Abdominal pain right-sided, burning in nature. 2. Status post cholecystectomy with right liver infarct. 3. Fluid collection, right upper quadrant, likely still related to postsurgical. PLAN: I have reviewed ID and Surgery's notes and agree. Likely we will advance diet today as tolerated, but we will defer to Surgery for the same. Antibiotics at this point are on hold as ID does not feel this is an abscess and I would agree clinically it is not. CHASE LEVINE MD DR: SUNG/amgy JOB#: [id number] / [id number]
[2018-01-14 19:00] VITALS: BP 142/93
[2018-01-14] MEDS: MAGNESIUM HYDROXIDE 2,400 MG/30 ML ORAL.SUSP. PO SCH (20:26)
[2018-01-14 22:47] VITALS: BP 144/96
[2018-01-15 03:00] VITALS: BP 131/89
[2018-01-15 07:00] VITALS: BP 123/101
--- NOTE | 2018-01-15 08:24 | PDOC ---
GENERAL General: see discharge summary. VITAL SIGNS Vital Signs: Vital Signs Date Time Temp Pulse Resp B/P (MAP) Pulse Ox O2 Delivery O2 Flow Rate FiO2 01/15/18 07:00 97.8 81 18 123/101 (108) 99 Room Air 97.8 I & O I & O Intake and Output 01/15/18 07:00 Intake Total 800 ml Balance 800 ml Intake Oral 800 ml # Voids 2 ALLERGIES Allergies: Allergies Coded Allergies Type Severity Reaction Last Updated Verified Penicillins Allergy Intermediate RASHY 10/25/17 Yes acetaminophen Adverse Reaction Intermediate severe stomach ache 10/25/17 Yes morphine Adverse Reaction Intermediate Itching 10/25/17 Yes MEDS Medications: Current Medications Medications (Trade) Dose Ordered Sig/Teto Start Time Stop Time Status Last Admin Dose Admin Acetaminophen/ Hydrocodone Bitart (Lortab 5/325) 2 tab PRN Q4HRS PRN 01/12/18 18:45 Dextrose (Dextrose 50%-Water Syringe) 12.5 gm PRN Q15MIN PRN 01/12/18 17:00 Diphenhydramine HCl (Benadryl) 25 mg PRN Q6HRS PRN 01/12/18 19:45 Fentanyl Citrate (Fentanyl 2ml Vial) 50 mcg PRN Q2HR PRN 01/12/18 17:00 01/13/18 16:59 DC 01/12/18 18:24 50 MCG Info (CONTRAST GIVEN -- Rx MONITORING) 1 each PRN DAILY PRN 01/12/18 13:45 01/14/18 13:44 DC Insulin Human Lispro (HumaLOG) 0-5 UNITS TIDWMEALS 01/12/18 17:00 01/14/18 17:41 2 UNITS Iohexol (Omnipaque 300 Mg/ml) 75 ml 1X ONCE 01/12/18 13:30 01/12/18 13:31 DC 01/12/18 13:30 75 ML Magnesium Hydroxide (Milk Of Magnesia) 2,400 mg BID 01/14/18 21:00 01/14/18 20:26 2,400 MG Mineral Oil (Fleet Mineral Oil) 133 ml 1X ONCE 01/14/18 13:30 01/14/18 13:31 DC 01/14/18 14:31 133 ML Ondansetron HCl (Zofran) 4 mg PRN Q8HRS PRN 01/12/18 17:00 01/13/18 16:59 DC 01/13/18 05:13 4 MG Pantoprazole Sodium (PROTONIX VIAL for IV PUSH) 40 mg DAILYAC 01/13/18 07:30 01/14/18 07:15 40 MG Sodium Chloride 1,000 ml @ 75 mls/hr 1X ONCE 01/12/18 17:00 01/13/18 06:19 DC 01/12/18 18:24 75 MLS/HR LAB Lab: Laboratory Tests Test 01/14/18 10:50 01/14/18 15:53 01/14/18 21:11 01/15/18 07:40 Glucose (Fingerstick) 167 mg/dL (70-99) 194 mg/dL (70-99) 261 mg/dL (70-99) 179 mg/dL (70-99) CHASE LEVINE MD Jan 15, 2018 08:24
[2018-01-15] MEDS: MAGNESIUM HYDROXIDE 2,400 MG/30 ML ORAL.SUSP. PO SCH (09:00)
[2018-01-15] MEDS: PANTOPRAZOLE IV PUSH 40 MG VIAL. IVP SCH (09:19)
[2018-01-15] MEDS: INSULIN LISPRO 300 UNITS/3 ML INSULN.PEN. SQ SCH (09:27)
--- NOTE | 2018-01-15 11:27 | PDOC ---
SURGICAL PROGRESS NOTE Subjective street clothes on ready to go home tolerating diet Vital Signs Vital Signs Date Time Temp Pulse Resp B/P (MAP) Pulse Ox O2 Delivery O2 Flow Rate FiO2 01/15/18 08:00 Room Air 01/15/18 07:00 97.8 81 18 123/101 (108) 99 97.8 I&O Intake and Output 01/15/18 07:00 Intake Total 800 ml Balance 800 ml Intake Oral 800 ml # Voids 2 PATIENT HAS A MAHER: No General: Alert, Oriented X3, Cooperative Labs Laboratory Tests Test 01/13/18 11:43 01/13/18 17:02 01/13/18 20:55 01/14/18 03:05 Glucose (Fingerstick) 179 mg/dL (70-99) 100 mg/dL (70-99) 175 mg/dL (70-99) Procalcitonin < 0.10 ng/mL (0.00-0.10) Test 01/14/18 07:19 01/14/18 10:50 01/14/18 15:53 01/14/18 21:11 Glucose (Fingerstick) 162 mg/dL (70-99) 167 mg/dL (70-99) 194 mg/dL (70-99) 261 mg/dL (70-99) Test 01/15/18 07:40 Glucose (Fingerstick) 179 mg/dL (70-99) Laboratory Tests Test 01/14/18 15:53 01/14/18 21:11 01/15/18 07:40 Glucose (Fingerstick) 194 mg/dL (70-99) 261 mg/dL (70-99) 179 mg/dL (70-99) Problem List Problems Medical Problems: (1) Abdominal pain Status: Acute (2) Hyperglycemia Status: Acute Assessment/Plan home today follow up as needed FRANKY JOSUE MD Jan 15, 2018 11:27
--- NOTE | 2018-01-15 14:11 | DS ---
DATE OF DISCHARGE: 01/15/2018 PRIMARY DIAGNOSES: Abdominal pain, either gastroesophageal reflux related versus constipation related. ADDITIONAL DIAGNOSES: Right upper quadrant fluid collection, measuring 8 x 4.7 cm, felt to be related to prior hepatic infarct; with cholecystectomy; diabetes mellitus. CHIEF COMPLAINT AND HISTORY OF PRESENT ILLNESS: This 42-year-old white female admitted through the Emergency Room with severe abdominal pain and the finding of the right upper quadrant fluid collection with a concern for abscess, although she denied any symptoms consistent with the same. She described the pain as burning and later described it worse with food. SUMMARY OF STAY: The patient was admitted. Labs including CBC, sugars, CMP and procalcitonin, all were essentially normal other than elevated blood sugar on admission of 339. Imaging showed the fluid collection. ID and Surgery saw her in consultations, both felt it was fluid from the prior hepatic infarct. Antibiotics were not started. Protonix was started as well as laxatives. Her pain improved and she was felt ready for dismissal on 01/15/2018. DISPOSITION: The patient is discharged to home, ADA diet, activity as tolerated, office in 2 weeks. She will resume her regular home meds plus Protonix 40 mg daily. CHASE LEVINE MD DR: SUNG/magy JOB#: [id number] / [id number]
== END 2018-01-15 11:30 | disposition home or self-care (01) | DRG 392 ==
LOC: ER 11:33 → 4 NORTH 16:42
PROVIDERS: ADMIT Family Medicine; ATTEND Family Medicine
DX: K21.9 Gastro-esophageal reflux disease without esophagitis (principal); F31.30 Bipolar disorder, current episode depressed, mild or moderate severity, unspecified; K59.00 Constipation, unspecified; I10 Essential (primary) hypertension; E10.65 Type 1 diabetes mellitus with hyperglycemia; J45.909 Unspecified asthma, uncomplicated; E78.5 Hyperlipidemia, unspecified; F41.9 Anxiety disorder, unspecified; G89.29 Other chronic pain; Z79.4 Long term (current) use of insulin; Z90.49 Acquired absence of other specified parts of digestive tract; Z88.6 Allergy status to analgesic agent; Z88.0 Allergy status to penicillin; Z87.891 Personal history of nicotine dependence
CPT/HCPCS: 36415; 74177; 80053; 81001; 81025; 82962; 83605; 83690; 84145; 85025; 87086; 96361; 96374; 96375; 96376; C9113; J1815; J2405; J3010; J7030; Q0163; Q9967; 99285-25

== ENCOUNTER 2018-02-14 15:05 | Emergency (ER) | payer BC ==
[~2018-02-14] VITALS: Ht 154.9 cm; Wt 60.8 kg
[2018-02-14 17:07] LABS: BILIRUBIN,URINE SMALL (NEG); CLARITY,URINE CLOUDY; COLOR,URINE AMBER; NITRITE,URINE NEGATIVE (NEG); PH,URINE 5.5; PROTEIN,URINE NEGATIVE (NEG-TRACE)
[2018-02-14 17:16] LABS: BACTERIA,URINE FEW /HPF (0-FEW); RBC,URINE 0 /HPF (0-2)
[2018-02-14 17:17] LABS: HYALINE CASTS, URINE FEW /HPF; SQUAMOUS EPITHELIAL CELL,UR MANY /LPF
[2018-02-14 17:19] LABS: BASO % 1 % (0-3); EOS % 1 % (0-3); HEMATOCRIT 35.1 % (36.0-47.0); HEMOGLOBIN 11.6 g/dL (12.0-15.5); LYMPH # 1.6 x10^3/uL (1.0-4.8); LYMPH % 25 % (24-48); MEAN CORPUSCULAR HEMOGLOBIN 25 pg (25-35); MEAN CORPUSCULAR HGB CONC 33 g/dL (31-37); MEAN CORPUSCULAR VOLUME 75 fL (79-100); MONO # 0.6 x10^3/uL (0.0-1.1); MONO % 9 % (0-9); NEUT # 4.1 x10^3uL (1.8-7.7); NEUT % 65 % (31-73); PLATELET COUNT 253 x10^3/uL (140-400); RED BLOOD COUNT 4.69 x10^6/uL (3.50-5.40); RED CELL DISTRIBUTION WIDTH 16.9 % (11.5-14.5); WHITE BLOOD COUNT 6.4 x10^3/uL (4.0-11.0)
--- NOTE | 2018-02-14 17:22 | PHYS DOC ---
Past Medical History Past Medical History: Bipolar, Depression, Diabetes-Type I, Hypertension Past Surgical History: Cholecystectomy Additional Past Surgical Histo: CYST REMOVED FROM SPINE Alcohol Use: None Drug Use: None Adult General Chief Complaint Chief Complaint: NAUSEA/VOMITING/DIARRHA HPI HPI Patient is a 42 year old female with history of diabetes type 1, hypertension, depression, bipolar, who presents today complaining of chronic right upper quadrant abdominal pain, epigastric abdominal pain, nausea and vomiting as well as dizziness that has been going on since August 2017 after she got her gallbladder removed, patient had a liver laceration during this procedure and had a lengthy stay in the hospital. She has been following up with her own PCP and general surgery. She states the PCP saw her yesterday and wanted her admitted but she does not know what happened. Review of Systems Review of Systems Constitutional: Denies fever or chills [] Eyes: Denies change in visual acuity, redness, or eye pain [] HENT: Denies nasal congestion or sore throat [] Respiratory: Denies cough or shortness of breath [] Cardiovascular: No additional information not addressed in HPI [] GI: Chronic nausea vomiting and upper abdominal pain. Denies bloody stools or diarrhea [] : Denies dysuria or hematuria [] Musculoskeletal: Denies back pain or joint pain [] Integument: Denies rash or skin lesions [] Neurologic: Chronic dizziness. Denies headache, focal weakness or sensory changes [] All other systems were reviewed and found to be within normal limits, except as documented in this note. Current Medications Current Medications Current Medications Medications (Trade) Dose Ordered Sig/Teto Start Time Stop Time Status Last Admin Dose Admin Ondansetron HCl (Zofran) 4 mg 1X ONCE 02/14/18 17:00 02/14/18 17:01 DC 02/14/18 17:29 4 MG Pantoprazole Sodium (PROTONIX VIAL for IV PUSH) 40 mg 1X ONCE 02/14/18 17:00 02/14/18 17:01 DC 02/14/18 17:30 40 MG Sodium Chloride 1,000 ml @ 1,000 mls/hr 1X ONCE 02/14/18 17:00 02/14/18 17:59 02/14/18 17:29 1,000 MLS/HR Allergies Allergies Allergies Coded Allergies Type Severity Reaction Last Updated Verified Penicillins Allergy Intermediate RASHY 10/25/17 Yes acetaminophen Adverse Reaction Intermediate severe stomach ache 10/25/17 Yes morphine Adverse Reaction Intermediate Itching 10/25/17 Yes Physical Exam Physical Exam Constitutional: Well developed, well nourished, no acute distress, non-toxic appearance. [] HENT: Normocephalic, atraumatic, bilateral external ears normal, oropharynx moist, no oral exudates, nose normal. [] Eyes: PERRLA, EOMI, conjunctiva normal, no discharge. [] Neck: Normal range of motion, no tenderness, supple, no stridor. [] Cardiovascular:Heart rate regular rhythm, no murmur [] Lungs & Thorax: Bilateral breath sounds clear to auscultation [] Abdomen: Old healed surgical incision noted to the right upper quadrant. Tenderness mid epigastric region as well as slight tenderness to the right upper quadrant. Bowel sounds normal, soft, no right lower quadrant tenderness, no masses, no pulsatile masses. [] Skin: Warm, dry, no erythema, no rash. [] Back: No tenderness, no CVA tenderness. [] Extremities: No tenderness, no cyanosis, no clubbing, ROM intact, no edema. [] Neurologic: Alert and oriented X 3, normal motor function, normal sensory function, no focal deficits noted. [] Psychologic: Affect normal, judgement normal, mood normal. [] Current Patient Data Vital Signs Vital Signs Date Time Temp Pulse Resp B/P (MAP) Pulse Ox O2 Delivery O2 Flow Rate FiO2 02/14/18 16:45 98.7 103 18 152/91 (111) 97 Room Air 98.7 Lab Values Laboratory Tests Test 02/14/18 16:42 02/14/18 17:00 02/14/18 17:10 Urine Collection Type Unknown Urine Color Benita Urine Clarity Cloudy Urine pH 5.5 Urine Specific [place] >=1.030 Urine Protein Negative mg/dL (NEG-TRACE) Urine Glucose (UA) >=1000 mg/dL (NEG) Urine Ketones (Stick) Negative mg/dL (NEG) Urine Blood Negative (NEG) Urine Nitrite Negative (NEG) Urine Bilirubin Small (NEG) Urine Urobilinogen Dipstick 1.0 mg/dL (0.2 mg/dL) Urine Leukocyte Esterase Negative (NEG) Urine RBC 0 /HPF (0-2) Urine WBC 11-20 /HPF (0-4) Urine Squamous Epithelial Cells Many /LPF Urine Bacteria Few /HPF (0-FEW) Urine Hyaline Casts Few /HPF POC Urine HCG, Qualitative Hcg negative (Negative) White Blood Count 6.4 x10^3/uL (4.0-11.0) Red Blood Count 4.69 x10^6/uL (3.50-5.40) Hemoglobin 11.6 g/dL (12.0-15.5) L Hematocrit 35.1 % (36.0-47.0) L Mean Corpuscular Volume 75 fL (79-100) L Mean Corpuscular Hemoglobin 25 pg (25-35) Mean Corpuscular Hemoglobin Concent 33 g/dL (31-37) Red Cell Distribution Width 16.9 % (11.5-14.5) H Platelet Count 253 x10^3/uL (140-400) Neutrophils (%) (Auto) 65 % (31-73) Lymphocytes (%) (Auto) 25 % (24-48) Monocytes (%) (Auto) 9 % (0-9) Eosinophils (%) (Auto) 1 % (0-3) Basophils (%) (Auto) 1 % (0-3) Neutrophils # (Auto) 4.1 x10^3uL (1.8-7.7) Lymphocytes # (Auto) 1.6 x10^3/uL (1.0-4.8) Monocytes # (Auto) 0.6 x10^3/uL (0.0-1.1) Eosinophils # (Auto) 0.0 x10^3/uL (0.0-0.7) Basophils # (Auto) 0.0 x10^3/uL (0.0-0.2) Sodium Level 133 mmol/L (136-145) L Potassium Level 4.0 mmol/L (3.5-5.1) Chloride Level 93 mmol/L (98-107) L Carbon Dioxide Level 27 mmol/L (21-32) Anion Gap 13 (6-14) Blood Urea Nitrogen 13 mg/dL (7-20) Creatinine 0.7 mg/dL (0.6-1.0) Estimated GFR (Cockcroft-Gault) 91.3 BUN/Creatinine Ratio 19 (6-20) Glucose Level 271 mg/dL (70-99) H Calcium Level 9.1 mg/dL (8.5-10.1) Total Bilirubin 0.6 mg/dL (0.2-1.0) Aspartate Amino Transferase (AST) 64 U/L (15-37) H Alanine Aminotransferase (ALT) 184 U/L (14-59) H Alkaline Phosphatase 347 U/L (46-116) H Total Protein 7.0 g/dL (6.4-8.2) Albumin 3.1 g/dL (3.4-5.0) L Albumin/Globulin Ratio 0.8 (1.0-1.7) L Lipase 179 U/L (73-393) Laboratory Tests 02/14/18 17:10 Laboratory Tests 02/14/18 17:10 EKG EKG [] Radiology/Procedures Radiology/Procedures [] Course & Med Decision Making Course & Med Decision Making Pertinent Labs and Imaging studies reviewed. (See chart for details) This is a 42-year-old female patient presenting to the ED today with chronic nausea, vomiting, abdominal pain, dizziness. Urine analysis is negative for infection, CBC with a normal WBC, CMP with slightly elevated liver enzymes AST 64, ALT 184, ALK 347 though this numbers are much lower from what they were in September. Patient was given IV fluids and nausea medicine as well as Protonix in the ED. Her blood glucose is 270, patient was encouraged to continue using her insulin at home. Spoke with Dr. Nuno. Patient was discharged with instructions to follow-up with him in the office. Patient was discharged with Zofran. Dragon Disclaimer Dragon Disclaimer This electronic medical record was generated, in whole or in part, using a voice recognition dictation system. Departure Departure Impression: Primary Impression: Hyperglycemia Additional Impressions: Chronic abdominal pain Nausea and vomiting Dizziness Transaminitis Disposition: 01 HOME, SELF-CARE Condition: STABLE Referrals: CHASE NUNO MD (PCP) follow up as soon as you can FRANKY JOSUE MD follow up as soon as you can Patient Instructions: Dizziness, Hyperglycemia, Nausea and Vomiting Additional Instructions: You were evaluated in the emergency room for chronic abdominal pain, nausea vomiting and dizziness. Please continue following up with Dr. Aragon as well as Dr. Josue. Take Zofran as needed for nausea or vomiting. Come back to the ED anytime symptoms worsen. Scripts Ondansetron (ZOFRAN ODT) 4 Mg Tab.rapdis 1 TAB SL Q8HRS, #15 TAB Prov: ALEX TINEO DARIELA 02/14/18 Problem Qualifiers Additional Impressions: Nausea and vomiting Vomiting type: unspecified Vomiting Intractability: unspecified Qualified Codes: R11.2 - Nausea with vomiting, unspecified ALEX TINEO [employer] Feb 14, 2018 17:22
[2018-02-14] MEDS: IV NORMAL SALINE 1000ML BAG 1,000 ML IV ONE (17:29)
[2018-02-14] MEDS: ONDANSETRON PF 4 MG/2 ML VIAL. IV ONE (17:29)
[2018-02-14 17:30] LABS: CALCIUM 9.1 mg/dL (8.5-10.1); CREATININE 0.7 mg/dL (0.6-1.0); GFR 91.3
[2018-02-14] MEDS: PANTOPRAZOLE IV PUSH 40 MG VIAL. IVP ONE (17:30)
[2018-02-14 17:35] LABS: ALBUMIN 3.1 g/dL (3.4-5.0); ALBUMIN/GLOBULIN RATIO 0.8 (1.0-1.7); TOTAL BILIRUBIN 0.6 mg/dL (0.2-1.0)
[2018-02-14] MEDS ORDERED: ONDA4TAB10 SL (17:46)
[2018-02-14 18:00] VITALS: BP 144/96
== END 2018-02-14 18:08 | disposition home or self-care (01) ==
LOC: ER 15:05
DX: E10.65 Type 1 diabetes mellitus with hyperglycemia (principal); G89.29 Other chronic pain; R10.13 Epigastric pain; R10.10 Upper abdominal pain, unspecified; R11.2 Nausea with vomiting, unspecified; R42 Dizziness and giddiness; R74.0 Nonspecific elevation of levels of transaminase and lactic acid dehydrogenase [LDH]; F31.9 Bipolar disorder, unspecified; I10 Essential (primary) hypertension; E10.9 Type 1 diabetes mellitus without complications; Z90.49 Acquired absence of other specified parts of digestive tract; Z88.0 Allergy status to penicillin; Z88.5 Allergy status to narcotic agent; Z88.6 Allergy status to analgesic agent
CPT/HCPCS: 36415; 80053; 81001; 81025; 83690; 85025; 96361; 96374; 96375; 99284; C9113; J2405; J7030; 87086

== ENCOUNTER 2018-02-15 13:17 | Inpatient (IN) | payer BC ==
[~2018-02-15] VITALS: Ht 154.9 cm; Wt 60.8 kg
[2018-02-15] MEDS: INSULIN LISPRO 300 UNITS/3 ML INSULN.PEN. SQ SCH (09:00)
[~2018-02-15 13:17] MED LIST changes: +ONDA4TAB10 SL
[2018-02-15 19:00] VITALS: BP 126/79
[2018-02-15] MEDS ORDERED: traMADol 50 MG TABLET PO PRN (20:00)
[2018-02-15] MEDS ORDERED: IBUPROFEN 600 MG TABLET. PO PRN (20:15)
[2018-02-15] MEDS: hydrOXYzine PAMOATE 25 MG CAPSULE PO PRN (20:40)
[2018-02-15] MEDS: IV 1/2 NORMAL SALINE 1,000 ML IV SCH (20:40)
[2018-02-15] MEDS: ZOLPIDEM 5 MG TABLET. PO PRN (21:52)
[2018-02-15] MEDS: ONDANSETRON ODT 4 MG TAB.RAPDIS. PO SCH (22:00)
[2018-02-15 23:00] VITALS: BP 110/75
[2018-02-16 00:28] LABS: BILIRUBIN,URINE NEGATIVE (NEG); CLARITY,URINE CLEAR; COLOR,URINE YELLOW; NITRITE,URINE NEGATIVE (NEG); PH,URINE 6.5; PROTEIN,URINE NEGATIVE (NEG-TRACE)
[2018-02-16 00:39] LABS: BACTERIA,URINE 0 /HPF (0-FEW); RBC,URINE 0 /HPF (0-2); SQUAMOUS EPITHELIAL CELL,UR MOD /LPF; WBC,URINE OCC /HPF (0-4)
[2018-02-16 03:00] VITALS: BP 107/82
[2018-02-16] MEDS: hydrOXYzine PAMOATE 25 MG CAPSULE PO PRN (04:12)
[2018-02-16] MEDS ORDERED: CONTRAST GIVEN. MC PRN ×2 (06:30→07:45)
[2018-02-16] MEDS ORDERED: IOHEXOL 300 MG/ML 100ML VIAL. IV ONE ×2 (06:30→08:00)
[2018-02-16 07:00] VITALS: BP 151/98
[2018-02-16] MEDS ORDERED: metFORMIN 500 MG TABLET PO SCH (08:00)
[2018-02-16 09:08] LABS: BASO % 1 % (0-3); EOS # 0.1 x10^3/uL (0.0-0.7); EOS % 2 % (0-3); HEMATOCRIT 35.6 % (36.0-47.0); HEMOGLOBIN 11.7 g/dL (12.0-15.5); LYMPH # 1.1 x10^3/uL (1.0-4.8); LYMPH % 23 % (24-48); MEAN CORPUSCULAR HEMOGLOBIN 25 pg (25-35); MEAN CORPUSCULAR HGB CONC 33 g/dL (31-37); MEAN CORPUSCULAR VOLUME 75 fL (79-100); MONO # 0.4 x10^3/uL (0.0-1.1); MONO % 8 % (0-9); NEUT # 3.3 x10^3uL (1.8-7.7); NEUT % 68 % (31-73); PLATELET COUNT 214 x10^3/uL (140-400); RED BLOOD COUNT 4.77 x10^6/uL (3.50-5.40); RED CELL DISTRIBUTION WIDTH 16.9 % (11.5-14.5); WHITE BLOOD COUNT 4.8 x10^3/uL (4.0-11.0)
[2018-02-16 09:21] LABS: ALBUMIN 2.8 g/dL (3.4-5.0); ALBUMIN/GLOBULIN RATIO 0.6 (1.0-1.7); CALCIUM 8.8 mg/dL (8.5-10.1); CREATININE 0.5 mg/dL (0.6-1.0); GFR 134.7; POTASSIUM 4.1 mmol/L (3.5-5.1); TOTAL BILIRUBIN 0.4 mg/dL (0.2-1.0); TOTAL PROTEIN 7.2 g/dL (6.4-8.2)
--- NOTE | 2018-02-16 09:43 | RAD ---
Examination: CT abdomen and pelvis without and CT abdomen IV contrast using CT multiphase liver protocol HISTORY: History of cholecystectomy, fluid buildup in the right lobe of the liver COMPARISON: 01/12/2018 TECHNIQUE: Axial CT images of the abdomen and pelvis performed without contrast and CT abdomen with IV contrast using CT liver protocol. Coronal and sagittal reformats are performed. FINDINGS: Small calcified granuloma identified in the right lung base. No evidence of free air identified in the abdomen. Prior changes of cholecystectomy. Small foci of air identified in the biliary tree in the right lobe and a small focus of air identified in the left lobe of the liver probably air in the intrahepatic bile ducts. The previously visualized hypodensity in the right lobe of the liver is smaller compared to prior exam probably known infarct. The hypodense portion of the infarct appears smaller measuring 4.8 x 2.9 cm in transverse and AP dimension and 7.5 cm in CC dimension now demonstrating fluid density. Enlarged appearing spleen with calcified granulomas with spleen measuring 13.5 cm The stomach is mildly distended. The visualized pancreas grossly appears unremarkable. The small bowel is nondilated. There is some filling defect identified in the superior mesenteric vein on the arterial phase images likely secondary to contrast mixing as it fills up on the delayed images. The small bowel is nondilated. There is some whirling of the mesentery of the mesenteric root similar to prior exam probably postsurgical changes. Few mesenteric lymph nodes identified the mesenteric root measuring up to 1.4 cm similar to prior exam. Feces and gas noted in the colon. The bilateral kidneys enhance symmetrically. Cystic structure identified in the left adnexa measuring 3.6 cm probably left ovarian cyst or cystic lesion. Mild degenerative changes lumbar spine. IMPRESSION: 1. The previously visualized ill-defined hypodensity identified in the right lobe of the liver probably known infarct now appears smaller and more cystic compared to prior exam. Complex fluid collection or abscess is not completely excluded. Clinical correlation is suggested. 2. Pneumobilia. 3. 3.6 cm cystic structure identified in the left adnexa probably left ovarian cyst or cystic lesion. Recommend follow-up nonemergent ultrasound pelvis. Electronically signed by: Bernardo Merino MD (02/16/2018 9:40 AM) [facility]
[2018-02-16] MEDS: ONDANSETRON ODT 4 MG TAB.RAPDIS. PO SCH ×3 (09:46→21:42)
[2018-02-16] MEDS: INSULIN LISPRO 300 UNITS/3 ML INSULN.PEN. SQ SCH ×2 (10:01→22:59)
[2018-02-16 11:00] VITALS: BP 138/91
--- NOTE | 2018-02-16 11:24 | PDOC2 ---
CONSULT Date of Consult Date of Consult DATE: 02/16/18 TIME: 11:22 Reason for Consult Reason for Consult: Transaminitis/ABnl Ct scan liver Past Medical History Cardiovascular: HTN, Hyperlipidemia Pulmonary: Asthma Psych: Anxiety, Depression Endocrine: Diabetes Past Surgical History Past Surgical History: Cholecystectomy Family History Family History: Other Social History ALCOHOL: none Drugs: Other Lives: with Family Current Medications Current Medications Current Medications Influenza Virus Vaccine (Afluria Trivalent [id number] Syringe) 0.5 ml ONCE ONCE VAX IM Last administered on 02/15/18at 16:30; Start 02/15/18 at 16:30; Stop 02/15/18 at 16:31; Status DC Lisinopril (Prinivil) 10 mg DAILY PO ; Start 02/16/18 at 09:00 Ondansetron HCl (Zofran Odt) 4 mg Q8HRS PO Last administered on 02/16/18at 09:46 ; Start 02/15/18 at 22:00 Tramadol HCl (Ultram) 50 mg PRN Q6HRS PRN PO PAIN; Start 02/15/18 at 20:00 Ibuprofen (Motrin) 600 mg PRN Q6HRS PRN PO INFLAMMATION; Start 02/15/18 at 20: 15 Metformin HCl (Glucophage) 1,000 mg DAILYWBKFT PO ; Start 02/16/18 at 08:00; Stop 02/16/18 at 08:00; Status DC Zolpidem Tartrate (Ambien) 5 mg PRN QHS PRN PO INSOMNIA Last administered on at 21:52; Start 02/15/18 at 20:15 Insulin Human Lispro (HumaLOG) 14 units DAILY SQ Last administered on at 10:01; Start 02/15/18 at 09:00 Hydroxyzine Pamoate (Vistaril) 25 mg PRN Q6HRS PRN PO ITCHING Last administered on 02/16/18at 04:12; Start 02/15/18 at 20:15 Sodium Chloride 1,000 ml @ 75 mls/hr [id number] IV Last administered on at 20:40; Start 02/15/18 at 21:00 Iohexol (Omnipaque 300 Mg/ml) 75 ml 1X ONCE IV ; Start 02/16/18 at 06:30; Stop 02/16/18 at 06:31; Status DC Info (CONTRAST GIVEN -- Rx MONITORING) 1 each PRN DAILY PRN MC SEE COMMENTS; Start 02/16/18 at 06:30; Stop 02/18/18 at 06:29 Metformin HCl (Glucophage) 1,000 mg DAILYWBKFT PO ; Start 02/18/18 at 17:00 Iohexol (Omnipaque 300 Mg/ml) 75 ml 1X ONCE IV ; Start 02/16/18 at 08:00; Stop 02/16/18 at 08:01; Status DC Info (CONTRAST GIVEN -- Rx MONITORING) 1 each PRN DAILY PRN MC SEE COMMENTS; Start 02/16/18 at 07:45; Stop 02/18/18 at 07:44 Active Scripts Active Zofran Odt (Ondansetron) 4 Mg Tab.rapdis 1 Tab SL Q8HRS Ultram (Tramadol Hcl) 50 Mg Tablet 50 Mg PO Q6H PRN Ibuprofen 600 Mg Tablet 600 Mg PO PRN Q6HRS PRN Reported Ambien (Zolpidem Tartrate) 10 Mg Tablet 10 Mg PO HS PRN [inslin] 14 Units SQ DAILY Metformin Hcl 1,000 Mg Tablet 1,000 Mg PO DAILYWBKFT Lisinopril 10 Mg Tablet 1 Tab PO DAILY Allergies Allergies: Coded Allergies: Penicillins (Verified Allergy, Intermediate, RASHY, 10/25/17) acetaminophen (Verified Adverse Reaction, Intermediate, severe stomach ache, 10/25/17) morphine (Verified Adverse Reaction, Intermediate, Itching, 10/25/17) Vitals VITALS Vital Signs Date Time Temp Pulse Resp B/P (MAP) Pulse Ox O2 Delivery O2 Flow Rate FiO2 02/16/18 07:00 97.8 84 18 151/98 (115) 96 Room Air 97.8 Labs Labs Laboratory Tests Test 02/15/18 16:43 02/15/18 20:54 02/15/18 23:30 02/16/18 07:34 Glucose (Fingerstick) 300 mg/dL (70-99) 348 mg/dL (70-99) 239 mg/dL (70-99) Urine Collection Type Unknown Urine Color Yellow Urine Clarity Clear Urine pH 6.5 Urine Specific [place] 1.025 Urine Protein Negative mg/dL (NEG-TRACE) Urine Glucose (UA) >=1000 mg/dL (NEG) Urine Ketones (Stick) Negative mg/dL (NEG) Urine Blood Negative (NEG) Urine Nitrite Negative (NEG) Urine Bilirubin Negative (NEG) Urine Urobilinogen Dipstick 1.0 mg/dL (0.2 mg/dL) Urine Leukocyte Esterase Negative (NEG) Urine RBC 0 /HPF (0-2) Urine WBC Occ /HPF (0-4) Urine Squamous Epithelial Cells Mod /LPF Urine Bacteria 0 /HPF (0-FEW) Urine Mucus Slight /LPF Test 02/16/18 08:30 White Blood Count 4.8 x10^3/uL (4.0-11.0) Red Blood Count 4.77 x10^6/uL (3.50-5.40) Hemoglobin 11.7 g/dL (12.0-15.5) Hematocrit 35.6 % (36.0-47.0) Mean Corpuscular Volume 75 fL (79-100) Mean Corpuscular Hemoglobin 25 pg (25-35) Mean Corpuscular Hemoglobin Concent 33 g/dL (31-37) Red Cell Distribution Width 16.9 % (11.5-14.5) Platelet Count 214 x10^3/uL (140-400) Neutrophils (%) (Auto) 68 % (31-73) Lymphocytes (%) (Auto) 23 % (24-48) Monocytes (%) (Auto) 8 % (0-9) Eosinophils (%) (Auto) 2 % (0-3) Basophils (%) (Auto) 1 % (0-3) Neutrophils # (Auto) 3.3 x10^3uL (1.8-7.7) Lymphocytes # (Auto) 1.1 x10^3/uL (1.0-4.8) Monocytes # (Auto) 0.4 x10^3/uL (0.0-1.1) Eosinophils # (Auto) 0.1 x10^3/uL (0.0-0.7) Basophils # (Auto) 0.0 x10^3/uL (0.0-0.2) Sodium Level 135 mmol/L (136-145) Potassium Level 4.1 mmol/L (3.5-5.1) Chloride Level 99 mmol/L (98-107) Carbon Dioxide Level 28 mmol/L (21-32) Anion Gap 8 (6-14) Blood Urea Nitrogen 6 mg/dL (7-20) Creatinine 0.5 mg/dL (0.6-1.0) Estimated GFR (Cockcroft-Gault) 134.7 BUN/Creatinine Ratio 12 (6-20) Glucose Level 259 mg/dL (70-99) Calcium Level 8.8 mg/dL (8.5-10.1) Total Bilirubin 0.4 mg/dL (0.2-1.0) Aspartate Amino Transf (AST/SGOT) 25 U/L (15-37) Alanine Aminotransferase (ALT/SGPT) 106 U/L (14-59) Alkaline Phosphatase 288 U/L (46-116) Total Protein 7.2 g/dL (6.4-8.2) Albumin 2.8 g/dL (3.4-5.0) Albumin/Globulin Ratio 0.6 (1.0-1.7) Laboratory Tests Test 02/15/18 16:43 02/15/18 20:54 02/15/18 23:30 02/16/18 07:34 Glucose (Fingerstick) 300 mg/dL (70-99) 348 mg/dL (70-99) 239 mg/dL (70-99) Urine Collection Type Unknown Urine Color Yellow Urine Clarity Clear Urine pH 6.5 Urine Specific [place] 1.025 Urine Protein Negative mg/dL (NEG-TRACE) Urine Glucose (UA) >=1000 mg/dL (NEG) Urine Ketones (Stick) Negative mg/dL (NEG) Urine Blood Negative (NEG) Urine Nitrite Negative (NEG) Urine Bilirubin Negative (NEG) Urine Urobilinogen Dipstick 1.0 mg/dL (0.2 mg/dL) Urine Leukocyte Esterase Negative (NEG) Urine RBC 0 /HPF (0-2) Urine WBC Occ /HPF (0-4) Urine Squamous Epithelial Cells Mod /LPF Urine Bacteria 0 /HPF (0-FEW) Urine Mucus Slight /LPF Test 02/16/18 08:30 White Blood Count 4.8 x10^3/uL (4.0-11.0) Red Blood Count 4.77 x10^6/uL (3.50-5.40) Hemoglobin 11.7 g/dL (12.0-15.5) Hematocrit 35.6 % (36.0-47.0) Mean Corpuscular Volume 75 fL (79-100) Mean Corpuscular Hemoglobin 25 pg (25-35) Mean Corpuscular Hemoglobin Concent 33 g/dL (31-37) Red Cell Distribution Width 16.9 % (11.5-14.5) Platelet Count 214 x10^3/uL (140-400) Neutrophils (%) (Auto) 68 % (31-73) Lymphocytes (%) (Auto) 23 % (24-48) Monocytes (%) (Auto) 8 % (0-9) Eosinophils (%) (Auto) 2 % (0-3) Basophils (%) (Auto) 1 % (0-3) Neutrophils # (Auto) 3.3 x10^3uL (1.8-7.7) Lymphocytes # (Auto) 1.1 x10^3/uL (1.0-4.8) Monocytes # (Auto) 0.4 x10^3/uL (0.0-1.1) Eosinophils # (Auto) 0.1 x10^3/uL (0.0-0.7) Basophils # (Auto) 0.0 x10^3/uL (0.0-0.2) Sodium Level 135 mmol/L (136-145) Potassium Level 4.1 mmol/L (3.5-5.1) Chloride Level 99 mmol/L (98-107) Carbon Dioxide Level 28 mmol/L (21-32) Anion Gap 8 (6-14) Blood Urea Nitrogen 6 mg/dL (7-20) Creatinine 0.5 mg/dL (0.6-1.0) Estimated GFR (Cockcroft-Gault) 134.7 BUN/Creatinine Ratio 12 (6-20) Glucose Level 259 mg/dL (70-99) Calcium Level 8.8 mg/dL (8.5-10.1) Total Bilirubin 0.4 mg/dL (0.2-1.0) Aspartate Amino Transf (AST/SGOT) 25 U/L (15-37) Alanine Aminotransferase (ALT/SGPT) 106 U/L (14-59) Alkaline Phosphatase 288 U/L (46-116) Total Protein 7.2 g/dL (6.4-8.2) Albumin 2.8 g/dL (3.4-5.0) Albumin/Globulin Ratio 0.6 (1.0-1.7) Assessment/Plan Assessment/Plan Transaminitis- S/p elida with possible hepatic infarct/abscess and/or malignancy Plan serial LFTS serologies MRI liver to further assess- surgical.ID, and IR consult likely will be needed pending results Full note dictated DWIGHT OLEA MD Feb 16, 2018 11:24
--- NOTE | 2018-02-16 11:52 | PN ---
DATE: 02/16/2018 LOCATION: She is in room 512. SUBJECTIVE: The patient is awake, alert. Major complaint this morning is itching as well as some ongoing epigastric right upper quadrant pain. OBJECTIVE: VITAL SIGNS: Stable. She is afebrile. CHEST: Clear. HEART: Regular. ABDOMEN: Does reveal some right upper quadrant tenderness, without rebound or guarding. EXTREMITIES: Without cyanosis, clubbing or edema. LABORTORY DATA: Labs that were ordered on admission have not been done yet to this point, other than a U/A, which was negative. She has had a blood sugar since admission, which had been moderately elevated. Her CMP and CBC have not been done, although in the Emergency Room, a couple of days ago, her alkaline phosphatase was elevated with liver function tests elevated, most consistent with an obstructive-type pattern, but a normal bilirubin. She is known to have the recent complication of a right hepatic infarct, associated with a cholecystectomy. IMPRESSION: 1. Abdominal pain with anorexia and vomiting. 2. Pruritus, felt to be possibly related to cholestasis. 3. 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 4. Diabetes. PLAN: Await GI consultation, CT scanning and lab work. This was discussed with nursing in detail, and the patient will be having all of these done very soon, but were not available for my review at this point. CHASE LEVINE MD DR: SUNG/magy JOB#: [id number] / [id number]
[2018-02-16] MEDS: IV 1/2 NORMAL SALINE 1,000 ML IV SCH ×2 (14:56→23:40)
[2018-02-16 15:00] VITALS: BP 127/84
[2018-02-16] MEDS: LISINOPRIL 10 MG TABLET PO SCH (15:08)
[2018-02-16] MEDS ORDERED: diphenhydrAMINE HCL 25 MG CAPSULE PO PRN (16:30)
[2018-02-16] MEDS ORDERED: diphenhydrAMINE 50 MG/ML VIAL IVP PRN ×2 (16:30)
--- NOTE | 2018-02-16 16:37 | CONS ---
DATE OF CONSULTATION: 02/16/2018 REASON FOR CONSULTATION: Transaminitis and abnormal CT scan of the liver. HISTORY OF PRESENT ILLNESS: A 42-year-old female with past medical history significant for hypertension, hyperlipidemia, asthma, anxiety, depression, diabetes, status post cholecystectomy, was admitted to [facility] with increased pruritus, right upper quadrant abdominal pain with an interval CT scan, which reveals a persistent hypodensity of the right lobe of the liver, which was cystic in nature, worrisome for possible complex fluid collection or abscess, pneumobilia, most likely from previous ERCP with attempted stent and a left adnexal cyst. Consultation is requested due to the persistent discomfort. The patient denies a family history of liver disease. She states she has had transfusions in the past and is here for further workup and care. PAST MEDICAL HISTORY: Hypertension, hyperlipidemia, asthma, anxiety, depression, diabetes, status post cholecystectomy. ALLERGIES: PENICILLIN, ACETAMINOPHEN, AND MORPHINE. MEDICATIONS: Presently include metformin, lisinopril, hydroxyzine, zolpidem, ibuprofen, tramadol, insulin. FAMILY AND SOCIAL HISTORY: She is a social drinker, nonsmoker. REVIEW OF SYSTEMS: Per records. PHYSICAL EXAMINATION: VITAL SIGNS: Temperature is 97.8, pulse 84, respirations 18, blood pressure is 151/98. HEENT: Normocephalic and atraumatic head. Pupils and extraocular muscles are not tested. Sclerae are icteric. NECK: Supple. LUNGS: Clear. CARDIOVASCULAR: Reveals S1, S2 without S3, S4 or appreciable murmur. ABDOMEN: Soft abdomen, normal bowel sounds without appreciable hepatosplenomegaly with right upper quadrant cholecystectomy incision and right upper quadrant discomfort to deep palpation. EXTREMITIES: Reveals no cyanosis, clubbing or edema. LABORATORY STUDIES: Sodium 139, potassium 4.1, chloride 98, BUN is 8, creatinine 0.5, glucose is 359, calcium 8.8, total bilirubin 0.4, AST of 25, ALT of 106, alkaline phosphatase is 286, total protein 7.2, albumin 2.8. Hemoglobin 11.7, hematocrit 35.6, white count 4.9, platelet count is 214,000. CT scan as stated reveals the hypodense possible cystic structure in the right lobe of liver. IMPRESSION: Abdominal pain with elevated liver enzymes, abnormal CT scan, abscess, malignancy, cyst certainly leads the differential, therefore recommend MRI of liver, serologies including hep B, hep C antibodies, antimitochondrial antibody, antinuclear antibody and MRI of the liver to further assess. ID, surgical and IR consult is most likely will be needed pending the MRI results. DWIGHT OLEA MD DR: SAMANTHA/magy JOB#: [id number] / [id number] ecc CHASE LEVINE MD, Dr.
[2018-02-16] MEDS: diphenhydrAMINE HCL 25 MG CAPSULE PO PRN (18:26)
[2018-02-16 19:00] VITALS: BP 143/87
[2018-02-16] MEDS: ZOLPIDEM 5 MG TABLET. PO PRN (21:42)
[2018-02-16] MEDS ORDERED: DEXTROSE 50% 25 GM / 50ML DISP.SYRIN. IV PRN (22:00)
[2018-02-16 23:02] VITALS: BP 105/73
[2018-02-17 03:03] VITALS: BP 118/75
[2018-02-17] MEDS: ONDANSETRON ODT 4 MG TAB.RAPDIS. PO SCH ×3 (05:43→21:54)
[2018-02-17 07:00] VITALS: BP 128/95
[2018-02-17] MEDS: INSULIN LISPRO 300 UNITS/3 ML INSULN.PEN. SQ SCH ×5 (09:00→21:08)
--- NOTE | 2018-02-17 12:03 | RAD ---
MRCP WO CONTRAST dated 02/17/2018 11:28 AM Indication: WORSENING ABDOMINAL PAIN, ABNORMAL CT, HX OF CHOLECYSTECTOMY IN SEPTEMBER, NO PRIORS . .. Comparison: CT dated 02/16/2018. Technique: Routine multiplanar multisequence imaging performed. Single shot fast spin echo imaging was performed in the axial and coronal plane along with thin and thick slab MRCP images in 3-D rotational reconstructed images. No contrast administered. Findings: Study is limited due to motion artifact. The left lobe of the liver is hypertrophied. The right lobe is small. The previously described vague area of low density within the right lobe liver laterally is hypointense in signal on T1 and gradient imaging with no significant increased signal on the T2-weighted sequences. There is vague increased signal on the DWI sequence in this region. No discrete mass. The left-sided biliary ducts are patent. The right-sided biliary radicles are somewhat small and irregular in appearance. There is evidence of prior choledocho duodenostomy. No filling defect. Gallbladder surgically absent. The spleen is upper limits of normal in size. Adrenal glands and kidneys are unremarkable. There is a trace amount of perihepatic ascites. IMPRESSION: 1. Signal abnormality and volume loss of the right lobe liver without discernible fluid component. This is most likely related to localized ischemia or infarct. No evidence of abscess. 2. Status post choledochoduodenostomy. There is no significant intrahepatic ductal dilatation or filling defect. The right-sided biliary radicles are somewhat small and irregular relative to the left-sided ducts, probably related to localized ischemia. Underlying cholangitis would be considered less likely. 3. Trace amount of perihepatic ascites. Electronically signed by: Alf Marie MD (02/17/2018 12:00 PM) [facility] [place]
[2018-02-17] MEDS: LISINOPRIL 10 MG TABLET PO SCH (12:38)
--- NOTE | 2018-02-17 13:11 | PDOC ---
G I PROGRESS NOTE Reason for Follow-up Abnl imaging/cholestasis Subjective Pruritus worsening Physical Exam Lungs clear CV S1 S2 ABD +BS, soft, nontender Review of Relevant I have reviewed the following items sheri (where applicable) has been applied. Labs Laboratory Tests Test 02/15/18 16:43 02/15/18 20:54 02/15/18 23:30 02/16/18 07:34 Glucose (Fingerstick) 300 mg/dL (70-99) 348 mg/dL (70-99) 239 mg/dL (70-99) Urine Collection Type Unknown Urine Color Yellow Urine Clarity Clear Urine pH 6.5 Urine Specific [place] 1.025 Urine Protein Negative mg/dL (NEG-TRACE) Urine Glucose (UA) >=1000 mg/dL (NEG) Urine Ketones (Stick) Negative mg/dL (NEG) Urine Blood Negative (NEG) Urine Nitrite Negative (NEG) Urine Bilirubin Negative (NEG) Urine Urobilinogen Dipstick 1.0 mg/dL (0.2 mg/dL) Urine Leukocyte Esterase Negative (NEG) Urine RBC 0 /HPF (0-2) Urine WBC Occ /HPF (0-4) Urine Squamous Epithelial Cells Mod /LPF Urine Bacteria 0 /HPF (0-FEW) Urine Mucus Slight /LPF Test 02/16/18 08:30 02/16/18 11:38 02/16/18 17:19 02/16/18 20:31 White Blood Count 4.8 x10^3/uL (4.0-11.0) Red Blood Count 4.77 x10^6/uL (3.50-5.40) Hemoglobin 11.7 g/dL (12.0-15.5) Hematocrit 35.6 % (36.0-47.0) Mean Corpuscular Volume 75 fL (79-100) Mean Corpuscular Hemoglobin 25 pg (25-35) Mean Corpuscular Hemoglobin Concent 33 g/dL (31-37) Red Cell Distribution Width 16.9 % (11.5-14.5) Platelet Count 214 x10^3/uL (140-400) Neutrophils (%) (Auto) 68 % (31-73) Lymphocytes (%) (Auto) 23 % (24-48) Monocytes (%) (Auto) 8 % (0-9) Eosinophils (%) (Auto) 2 % (0-3) Basophils (%) (Auto) 1 % (0-3) Neutrophils # (Auto) 3.3 x10^3uL (1.8-7.7) Lymphocytes # (Auto) 1.1 x10^3/uL (1.0-4.8) Monocytes # (Auto) 0.4 x10^3/uL (0.0-1.1) Eosinophils # (Auto) 0.1 x10^3/uL (0.0-0.7) Basophils # (Auto) 0.0 x10^3/uL (0.0-0.2) Sodium Level 135 mmol/L (136-145) Potassium Level 4.1 mmol/L (3.5-5.1) Chloride Level 99 mmol/L (98-107) Carbon Dioxide Level 28 mmol/L (21-32) Anion Gap 8 (6-14) Blood Urea Nitrogen 6 mg/dL (7-20) Creatinine 0.5 mg/dL (0.6-1.0) Estimated GFR (Cockcroft-Gault) 134.7 BUN/Creatinine Ratio 12 (6-20) Glucose Level 259 mg/dL (70-99) Calcium Level 8.8 mg/dL (8.5-10.1) Total Bilirubin 0.4 mg/dL (0.2-1.0) Aspartate Amino Transf (AST/SGOT) 25 U/L (15-37) Alanine Aminotransferase (ALT/SGPT) 106 U/L (14-59) Alkaline Phosphatase 288 U/L (46-116) Total Protein 7.2 g/dL (6.4-8.2) Albumin 2.8 g/dL (3.4-5.0) Albumin/Globulin Ratio 0.6 (1.0-1.7) Tumor Marker Alpha Fetoprotein 1.5 ng/mL (0.0-8.3) Glucose (Fingerstick) 181 mg/dL (70-99) 287 mg/dL (70-99) 334 mg/dL (70-99) Test 02/17/18 07:29 02/17/18 11:33 Glucose (Fingerstick) 214 mg/dL (70-99) 181 mg/dL (70-99) Laboratory Tests Test 02/16/18 17:19 02/16/18 20:31 02/17/18 07:29 02/17/18 11:33 Glucose (Fingerstick) 287 mg/dL (70-99) 334 mg/dL (70-99) 214 mg/dL (70-99) 181 mg/dL (70-99) Medications Current Medications Influenza Virus Vaccine (Afluria Trivalent [id number] Syringe) 0.5 ml ONCE ONCE VAX IM Last administered on 02/15/18 16:30; Start 02/15/18 at 16:30; Stop 02/15/18 at 16:31; Status DC Lisinopril (Prinivil) 10 mg DAILY PO Last administered on 02/17/18 12:38; Start 02/16/18 at 09:00 Ondansetron HCl (Zofran Odt) 4 mg Q8HRS PO Last administered on 02/16/18 21:42 ; Start 02/15/18 at 22:00 Tramadol HCl (Ultram) 50 mg PRN Q6HRS PRN PO PAIN Last administered on 18:30; Start 02/15/18 at 20:00 Ibuprofen (Motrin) 600 mg PRN Q6HRS PRN PO INFLAMMATION; Start 02/15/18 at 20: 15 Metformin HCl (Glucophage) 1,000 mg DAILYWBKFT PO ; Start 02/16/18 at 08:00; Stop 02/16/18 at 08:00; Status DC Zolpidem Tartrate (Ambien) 5 mg PRN QHS PRN PO INSOMNIA Last administered on 21:42; Start 02/15/18 at 20:15 Insulin Human Lispro (HumaLOG) 14 units DAILY SQ Last administered on at 10:01; Start 02/15/18 at 09:00 Hydroxyzine Pamoate (Vistaril) 25 mg PRN Q6HRS PRN PO ITCHING, 2ND CHOICE Last administered on 02/16/18 04:12; Start 02/15/18 at 20:15 Sodium Chloride 1,000 ml @ 75 mls/hr [id number] IV Last administered on at 23:40; Start 02/15/18 at 21:00 Iohexol (Omnipaque 300 Mg/ml) 75 ml 1X ONCE IV Last administered on 11/3/18at 06:30; Start 02/16/18 at 06:30; Stop 02/16/18 at 06:31; Status DC Info (CONTRAST GIVEN -- Rx MONITORING) 1 each PRN DAILY PRN MC SEE COMMENTS; Start 02/16/18 at 06:30; Stop 02/18/18 at 06:29 Metformin HCl (Glucophage) 1,000 mg DAILYWBKFT PO ; Start 02/18/18 at 17:00 Iohexol (Omnipaque 300 Mg/ml) 75 ml 1X ONCE IV ; Start 02/16/18 at 08:00; Stop 02/16/18 at 08:01; Status DC Info (CONTRAST GIVEN -- Rx MONITORING) 1 each PRN DAILY PRN MC SEE COMMENTS; Start 02/16/18 at 07:45; Stop 02/18/18 at 07:44 Diphenhydramine HCl (Benadryl) 25 mg PRN Q6HRS PRN IVP ITCHING; Start 02/16/18 at 16:30 Diphenhydramine HCl (Benadryl) 50 mg PRN Q6HRS PRN IVP ITCHING Last administered on 02/17/18at 09:38; Start 02/16/18 at 16:30 Diphenhydramine HCl (Benadryl) 25 mg PRN Q6HRS PRN PO ITCHING; Start 02/16/18 at 16:30 Diphenhydramine HCl (Benadryl) 50 mg PRN Q6HRS PRN PO ITCHING Last administered on 02/16/18at 18:26; Start 02/16/18 at 16:30 Insulin Human Lispro (HumaLOG) 0-7 UNITS QIDACHS SQ Last administered on at 12:45; Start 02/16/18 at 22:00 Dextrose (Dextrose 50%-Water Syringe) 12.5 gm PRN Q15MIN PRN IV SEE COMMENTS; Start 02/16/18 at 22:00 Active Scripts Active Zofran Odt (Ondansetron) 4 Mg Tab.rapdis 1 Tab SL Q8HRS Ultram (Tramadol Hcl) 50 Mg Tablet 50 Mg PO Q6H PRN Ibuprofen 600 Mg Tablet 600 Mg PO PRN Q6HRS PRN Reported Ambien (Zolpidem Tartrate) 10 Mg Tablet 10 Mg PO HS PRN [inslin] 14 Units SQ DAILY Metformin Hcl 1,000 Mg Tablet 1,000 Mg PO DAILYWBKFT Lisinopril 10 Mg Tablet 1 Tab PO DAILY Vitals/I & O Vital Sign - Last 24 Hours 02/16/18 02/16/18 02/16/18 02/16/18 15:00 15:08 18:30 19:00 Temp 98.2 98.7 98.2 98.7 Pulse 91 85 93 Resp 18 18 20 B/P (MAP) 127/84 (98) 138/91 143/87 (105) Pulse Ox 96 96 95 O2 Delivery Room Air Room Air Room Air 02/16/18 02/16/18 02/16/18 02/17/18 19:30 19:43 23:02 03:03 Temp 97.9 97.9 97.9 97.9 Pulse 93 68 Resp 20 20 B/P (MAP) 105/73 (84) 118/75 (89) Pulse Ox 95 94 94 O2 Delivery Room Air Room Air Room Air Room Air 02/17/18 02/17/18 07:00 12:38 Temp 97.7 97.7 Pulse 83 76 Resp 18 B/P (MAP) 128/95 (106) 121/89 Pulse Ox 95 O2 Delivery Room Air Intake and Output 02/16/18 02/16/18 02/17/18 15:00 23:00 07:00 Intake Total 1200 ml Output Total 0 ml Balance 1200 ml 0 ml Problem List Abd pain- with cholestsis-increased alkaline phosphatase, MRCP suggesting hepatic infarct not abscess, await AMA/RUPESH titers for PBC/autoimmune liver disease, image guided liver biopsy to furrther assess is suggested with increasing pruritus DWIGHT OLEA MD Feb 17, 2018 13:11
[2018-02-17 15:00] VITALS: BP 126/89
[2018-02-17] MEDS: IV 1/2 NORMAL SALINE 1,000 ML IV SCH (16:44)
[2018-02-17 19:00] VITALS: BP 123/81
[2018-02-17 23:04] VITALS: BP 116/78
--- NOTE | 2018-02-18 01:53 | PN ---
DATE: 02/17/2018 LOCATION: She is in room 512. SUBJECTIVE: The patient is awake, alert, has just had her MRCP, while I am seeing her is feeling better. I received a call last evening with her sugar high and nursing stating that she is eating well. She states she is hungry right now and has been eating much better than she was at home without any vomiting since admission. OBJECTIVE: VITAL SIGNS: Stable. She is afebrile. CHEST: Clear. HEART: Regular. ABDOMEN: Reveals minimal right upper quadrant tenderness. EXTREMITIES: Without cyanosis, clubbing or edema. NEUROLOGIC: She is intact. ASSESSMENT: 1. Abdominal pain with anorexia and vomiting and seemingly improved, which she relates to the IV fluids. 2. Pruritus felt to be possibly related to cholestasis. 3. 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 4. Diabetes. PLAN: Await MRCP findings with GI planning from that point. We will recheck blood in the morning as she does seem to be symptomatically improved and last lab work prior to the last couple of weeks did not show any of the transaminitis with elevated alkaline phosphatase. CHASE LEVINE MD DR: SUNG/magy JOB#: [id number] / [id number]
[2018-02-18] MEDS: IV 1/2 NORMAL SALINE 1,000 ML IV SCH ×2 (02:25→15:40)
[2018-02-18 03:04] VITALS: BP 110/73
[2018-02-18 05:43] LABS: ALBUMIN 2.5 g/dL (3.4-5.0); ALBUMIN/GLOBULIN RATIO 0.6 (1.0-1.7); CALCIUM 8.8 mg/dL (8.5-10.1); CREATININE 0.5 mg/dL (0.6-1.0); GFR 134.7; TOTAL PROTEIN 6.9 g/dL (6.4-8.2)
[2018-02-18 05:44] LABS: POTASSIUM 4.3 mmol/L (3.5-5.1)
[2018-02-18] MEDS: ONDANSETRON ODT 4 MG TAB.RAPDIS. PO SCH ×3 (06:20→21:10)
[2018-02-18 07:00] VITALS: BP 132/97
[2018-02-18] MEDS: LISINOPRIL 10 MG TABLET PO SCH (08:55)
[2018-02-18] MEDS: diphenhydrAMINE HCL 25 MG CAPSULE PO PRN ×2 (09:03→21:10)
[2018-02-18] MEDS: INSULIN LISPRO 300 UNITS/3 ML INSULN.PEN. SQ SCH ×5 (09:07→21:15)
[2018-02-18 10:56] VITALS: BP 105/61
--- NOTE | 2018-02-18 13:23 | PDOC ---
Subjective: Subjective: Feels better than yesterday - denies abd pain. Still really itchy. Re: further eval at [facility] as inpt or outpt - wants whatever option is the fastest. Objective: Vital Signs: Vital Signs Date Time Temp Pulse Resp B/P (MAP) Pulse Ox O2 Delivery O2 Flow Rate FiO2 02/18/18 10:56 98.2 88 20 105/61 (76) 94 Room Air 98.2 Labs: Laboratory Tests Test 02/17/18 16:50 02/17/18 20:23 02/18/18 04:05 02/18/18 07:27 Glucose (Fingerstick) 262 mg/dL 303 mg/dL 208 mg/dL Sodium Level 134 mmol/L Potassium Level 4.3 mmol/L Chloride Level 98 mmol/L Carbon Dioxide Level 26 mmol/L Anion Gap 10 Blood Urea Nitrogen 4 mg/dL Creatinine 0.5 mg/dL Estimated GFR (Cockcroft-Gault) 134.7 BUN/Creatinine Ratio 8 Glucose Level 234 mg/dL Calcium Level 8.8 mg/dL Total Bilirubin 1.0 mg/dL Aspartate Amino Transf (AST/SGOT) 164 U/L Alanine Aminotransferase (ALT/SGPT) 148 U/L Alkaline Phosphatase 388 U/L Total Protein 6.9 g/dL Albumin 2.5 g/dL Albumin/Globulin Ratio 0.6 Test 02/18/18 11:50 Glucose (Fingerstick) 87 mg/dL Imaging: CT A/P IMPRESSION: 1. The previously visualized ill-defined hypodensity identified in the right lobe of the liver probably known infarct now appears smaller and more cystic compared to prior exam. Complex fluid collection or abscess is not completely excluded. Clinical correlation is suggested. 2. Pneumobilia. 3. 3.6 cm cystic structure identified in the left adnexa probably left ovarian cyst or cystic lesion. Recommend follow-up nonemergent ultrasound pelvis. MRCP IMPRESSION: 1. Signal abnormality and volume loss of the right lobe liver without discernible fluid component. This is most likely related to localized ischemia or infarct. No evidence of abscess. 2. Status post choledochoduodenostomy. There is no significant intrahepatic ductal dilatation or filling defect. The right-sided biliary radicles are somewhat small and irregular relative to the left-sided ducts, probably related to localized ischemia. Underlying cholangitis would be considered less likely. 3. Trace amount of perihepatic ascites. PE: GEN: NAD LUNGS: CTAB HEART: RRR ABD: soft, non-tender NEURO/PSYCH: A & O 3 A/P: Pruritus Abd pain - better Elevated LFTs S/p choledochoduodenostomy -- Will review w/ Dr. Garcia re: family/pt request for further eval @ . ARCHANA COULTER Feb 18, 2018 13:23
[2018-02-18 15:00] VITALS: BP 117/71
[2018-02-18] MEDS: metFORMIN 500 MG TABLET PO SCH (17:28)
[2018-02-18 19:00] VITALS: BP 137/97
[2018-02-18] MEDS ORDERED: SERTRALINE 25 MG TABLET. PO SCH (21:00)
[2018-02-18 23:00] VITALS: BP 115/78
[2018-02-19 04:03] VITALS: BP 141/82
[2018-02-19] MEDS: IV 1/2 NORMAL SALINE 1,000 ML IV SCH ×2 (05:35→21:18)
[2018-02-19] MEDS: ONDANSETRON ODT 4 MG TAB.RAPDIS. PO SCH ×3 (05:35→21:17)
[2018-02-19 07:00] VITALS: BP 123/86
--- NOTE | 2018-02-19 07:01 | PN ---
DATE: 02/18/2018 LOCATION: Room 512. SUBJECTIVE: The patient is awake and alert. Mother is in attendance. Mother would like any further workup including liver biopsy if necessary to be done at [facility] and asked for transfer to the same. I explained I do not believe at this point that they would accept her in transfer. She is not acutely ill enough, but I would discuss with GI trying to expedite evaluation there from a liver standpoint. Also explained the MRCP did not show any extrabiliary obstruction and we were concerned about some intrabiliary process going on. OBJECTIVE: VITAL SIGNS: Stable. She is afebrile. GENERAL: After eating good all day yesterday, was nauseated during the night and vomited. Sugars have been variable anywhere from 87-303 over the last day or so. GI is following along and I did discuss with Dr. Palacio, who will try to expedite GI evaluation and KUB for us. CHEST: Clear. HEART: Regular. ABDOMEN: Benign. IMPRESSION: 1. Pruritus with elevated liver function tests, felt due to cholecystitis with abdominal pain that is improved status post choledochoduodenostomy. 2. Diabetes. PLAN: Again, we will try to arrange for further care to happen at with likely discharge from the hospital tomorrow so that we can set up the same. CHASE LEVINE MD DR: SUNG/magy JOB#: [id number] / [id number]
[2018-02-19] MEDS: metFORMIN 500 MG TABLET PO SCH (08:16)
[2018-02-19] MEDS: LISINOPRIL 10 MG TABLET PO SCH (08:17)
[2018-02-19] MEDS: hydrOXYzine PAMOATE 25 MG CAPSULE PO PRN (08:17)
[2018-02-19] MEDS: INSULIN LISPRO 300 UNITS/3 ML INSULN.PEN. SQ SCH ×5 (08:21→21:28)
[2018-02-19 11:01] VITALS: BP 115/86
--- NOTE | 2018-02-19 13:00 | PDOC ---
Subjective: Subjective: Pt and mother concerned with ongoing symptoms and anxious to know what the next step is. Objective: Objective: Reviewed primary note. Vital Signs: Vital Signs Date Time Temp Pulse Resp B/P (MAP) Pulse Ox O2 Delivery O2 Flow Rate FiO2 02/19/18 11:01 99.2 93 20 115/86 (96) 95 Room Air 99.2 Labs: Laboratory Tests Test 02/18/18 17:00 02/18/18 20:39 02/19/18 07:46 02/19/18 11:32 Glucose (Fingerstick) 282 mg/dL (70-99) 244 mg/dL (70-99) 228 mg/dL (70-99) 215 mg/dL (70-99) PE: GEN: actively itching arms LUNGS: room air NEURO/PSYCH: A & O 3, frustrated A/P: Pruritus, abd pain, elevated LFTs - suspect partial biliary obstruction, stenosis of bile duct/bowel anastomosis -- Ideally would transfer to tertiary center like instead of pursuing outpt follow-up. Other per Dr. Garcia. ARCHANA COULTER Feb 19, 2018 13:00
[2018-02-19 13:26] LABS: MITOCHONDRIAL ABDY 5.9 Units (0.0-20.0)
[2018-02-19 15:00] VITALS: BP 128/66
[2018-02-19 16:16] LABS: ANA INTERP Negative (.)
[2018-02-19] MEDS: URSODIOL 300 MG CAPSULE. PO SCH (17:15)
[2018-02-19 19:00] VITALS: BP 116/72
[2018-02-19] MEDS ORDERED: SERTRALINE 25 MG TABLET. PO SCH (21:00)
[2018-02-19] MEDS: ZOLPIDEM 5 MG TABLET. PO PRN (21:18)
--- NOTE | 2018-02-19 21:38 | PN ---
DATE: 02/19/2018 LOCATION: Room 512. SUBJECTIVE: The patient is awake, alert, itching and scratching during the exam. Mom is present for the exam with lots of questions. OBJECTIVE: VITAL SIGNS: Stable. She is afebrile. Sugars have been anywhere from 87 to the upper 200s consistent with her labile diabetes. CHEST: Clear. HEART: Regular. ABDOMEN: Benign with very minimal right upper quadrant tenderness. LABORATORY DATA: Alkaline phosphatase yesterday was up to 388. Discussed in detail once again the abdomen and CT pelvis findings and the MRCP findings. They are still wanting to get further care through [facility] and GI nurse practitioner is trying to arrange the same after my discussion with GI yesterday. IMPRESSION: 1. Cholestasis with diffuse intractable pruritus with no evidence of extrahepatic biliary obstruction on imaging. 2. Status post choledochoduodenostomy. 3. Status post right hepatic infarct following cholecystectomy. 4. Diabetes. PLAN: Told the patient and mother I would expect discharge today. Hopefully, GI can do the hospital transfer, but if not, very least get an outpatient. Plan sent out. She will need liver biopsy to rule out things such as primary biliary cirrhosis, etc., but prefer again if that will happen at . CHASE LEVINE MD DR: SUNG/magy JOB#: [id number] / [id number]
[2018-02-19 23:00] VITALS: BP 126/73
[2018-02-20 03:00] VITALS: BP 97/67
[2018-02-20 05:03] LABS: ALBUMIN 2.4 g/dL (3.4-5.0); ALBUMIN/GLOBULIN RATIO 0.6 (1.0-1.7); CALCIUM 8.6 mg/dL (8.5-10.1); CREATININE 0.5 mg/dL (0.6-1.0); GFR 134.7; POTASSIUM 3.9 mmol/L (3.5-5.1); TOTAL BILIRUBIN 1.2 mg/dL (0.2-1.0); TOTAL PROTEIN 6.7 g/dL (6.4-8.2)
[2018-02-20] MEDS: ONDANSETRON ODT 4 MG TAB.RAPDIS. PO SCH (05:28)
[2018-02-20 07:00] VITALS: BP 117/85
[2018-02-20] MEDS: IV 1/2 NORMAL SALINE 1,000 ML IV SCH (07:40)
[2018-02-20] MEDS: diphenhydrAMINE HCL 25 MG CAPSULE PO PRN (08:27)
[2018-02-20] MEDS: metFORMIN 500 MG TABLET PO SCH (08:28)
[2018-02-20] MEDS: URSODIOL 300 MG CAPSULE. PO SCH (08:33)
[2018-02-20] MEDS: LISINOPRIL 10 MG TABLET PO SCH (08:33)
[2018-02-20] MEDS: INSULIN LISPRO 300 UNITS/3 ML INSULN.PEN. SQ SCH ×3 (08:37→11:30)
[2018-02-20 11:00] VITALS: BP 122/78
--- NOTE | 2018-02-20 12:43 | PDOC ---
Subjective: Subjective: Saw earlier this morning w/ Dr. Garcia. Slept better last night - thinks Sertraline helped. Wants to go home. Objective: Vital Signs: Vital Signs Date Time Temp Pulse Resp B/P (MAP) Pulse Ox O2 Delivery O2 Flow Rate FiO2 02/20/18 11:00 97.8 84 18 122/78 (93) 96 Room Air 97.8 Labs: Laboratory Tests Test 02/19/18 16:55 02/19/18 21:15 02/20/18 04:05 02/20/18 07:39 Glucose (Fingerstick) 205 mg/dL 223 mg/dL 205 mg/dL Sodium Level 134 mmol/L Potassium Level 3.9 mmol/L Chloride Level 99 mmol/L Carbon Dioxide Level 27 mmol/L Anion Gap 8 Blood Urea Nitrogen 5 mg/dL Creatinine 0.5 mg/dL Estimated GFR (Cockcroft-Gault) 134.7 BUN/Creatinine Ratio 10 Glucose Level 197 mg/dL Calcium Level 8.6 mg/dL Total Bilirubin 1.2 mg/dL Aspartate Amino Transf (AST/SGOT) 44 U/L Alanine Aminotransferase (ALT/SGPT) 107 U/L Alkaline Phosphatase 362 U/L Total Protein 6.7 g/dL Albumin 2.4 g/dL Albumin/Globulin Ratio 0.6 Test 02/20/18 11:25 Glucose (Fingerstick) 120 mg/dL PE: GEN: NAD SKIN: excoriations NEURO/PSYCH: A & O 3 A/P: Pruritus, elevated LFTs - suspect partial biliary obstruction/stricture of hepaticojejunostomy -- Dr. Garcia attempted to initiate [facility] transfer yesterday - unsuccessful. Family does not wish for further testing, etc. (w/ IR or otherwise) @ [facility] but do desire further evaluation at . Pt wants to go home. Can DC per primary. Dr. Garcia to contact Dr. Nieto again re: expediting follow-up in his office. Our office can contact her with appointment time - she was also left with our information. Called this to RN including recs to send home on Sertraline. ARCHANA COULTER Feb 20, 2018 12:43
[2018-02-20] MEDS ORDERED: SERT25TA PO ×2 (13:08→13:10)
--- NOTE | 2018-02-20 21:56 | PN ---
DATE: 02/20/2018 LOCATION: She is in room 512. SUBJECTIVE: The patient is awake, alert. Mother is present. Still itching, but somewhat decreased with a new medicine by Dr. Garcia. OBJECTIVE: VITAL SIGNS: Stable. T-max of 100. Alkaline phosphatase is 362 this morning. RUPESH and RUPESH titers were negative. CHEST: Clear. HEART: Regular. ABDOMEN: Benign. No evidence of jaundice. IMPRESSION: 1. Cholestasis with intractable itching. 2. Diabetes. 3. Status post cholecystectomy with right hepatic infarct. PLAN: Gastrointestinal is trying to arrange transfer to . Hopefully, this will happen sometime today; if not, would expect she would have to go home and do this as an outpatient. CHASE LEVINE MD DR: SUNG/magy JOB#: [id number] / [id number]
== END 2018-02-20 14:00 | disposition home or self-care (01) | DRG 446 ==
LOC: 5 NORTH 14:05
PROVIDERS: ADMIT Family Medicine; ATTEND Family Medicine
DX: K83.1 Obstruction of bile duct (principal); L29.9 Pruritus, unspecified; E78.5 Hyperlipidemia, unspecified; I10 Essential (primary) hypertension; J45.909 Unspecified asthma, uncomplicated; F41.9 Anxiety disorder, unspecified; F32.9 Major depressive disorder, single episode, unspecified; E11.9 Type 2 diabetes mellitus without complications; Z90.49 Acquired absence of other specified parts of digestive tract; Z88.6 Allergy status to analgesic agent; Z88.5 Allergy status to narcotic agent; Z88.0 Allergy status to penicillin
CPT/HCPCS: 36415; 74178; 74181; 80053; 81001; 81025; 82105; 82962; 83520; 83690; 85025; 86038; 87086; 90471; 90756; J1200; J1815; Q0162; Q0163; Q0177; Q9967; 83516; Q2035